=== PATIENT | male | born 1980 | race Caucasian/White ===

== ENCOUNTER 2020-09-13 17:20 | Inpatient (IN) | payer MEDICARE ==
[2020-09-13] MEDS: D5 1/4 NS 1,000 ML IV SCH (18:00)
[2020-09-13] MEDS ORDERED: Bisacodyl 10 MG SUPP PR PRN (18:36)
[2020-09-13] MEDS ORDERED: Acetaminophen 650 MG Suppository PR PRN (18:36)
[2020-09-13] MEDS ORDERED: Mag-Al Plus 1200 MG/1200 MG/120 MG/30 ML UDCUP PO PRN (18:36)
[2020-09-13] MEDS ORDERED: HumaLOG 300 UNITS/3 ML VIAL SC PRN ×2 (18:38→20:15)
[2020-09-13] MEDS ORDERED: Dextrose 50% Abboject 50 ML SYRINGE IVP PRN (20:15)
[2020-09-13] MEDS ORDERED: Dextrose 5% in Water 1,000 ML IV PRN (20:15)
[2020-09-13] MEDS ORDERED: Milk Of Magnesia 30 ML UDCUP PO PRN (20:16)
[2020-09-13] MEDS ORDERED: Ondansetron PF 4 MG/2 ML Vial IVP PRN (20:17)
[2020-09-13] MEDS ORDERED: Promethazine HCl 25 MG/ML VIAL IM PRN (20:17)
[2020-09-13] MEDS: Nystatin Powder 15 GM BOT TOP SCH (21:56)
[2020-09-13] MEDS: Budesonide 0.5 MG/2 ML NEB NEB SCH (21:57)
[2020-09-14 00:39] LABS: Bilirubin Small (Negative); Blood, Urine Trace (Negative); Clarity Clear (Clear); Glucose, Urine (Dipstick) Negative (Negative); Ketone, Urine Negative (Negative); Leukocyte Large (Negative); Nitrite Negative (Negative); Protein, Urine (Dipstick) 30 mg/dL (Neg-Trace); Specific Gravity, Urine 1.015 (1.005-1.030)
[2020-09-14 00:55] LABS: RBC/HPF 0-3 HPF (0-3)
[2020-09-14 00:56] LABS: Bacteria/HPF None Seen HPF (None Seen); Squamous Epithelial None Seen HPF (0-3); WBC/HPF Greater Than 50 HPF (0-3); Yeast-Budding 3+ HPF (None Seen); Yeast-Hyphae 1+ HPF (None Seen)
[2020-09-14 05:49] LABS: #Basophils 0.1 thou/uL (0.0-0.2); #Lymphocytes 0.7 thou/uL (1.20-3.40); #Monocytes 0.4 thou/uL (0.11-0.59); #Neutrophils 2.9 thou/uL (1.40-6.50); %Basophils 1.3 % (0.0-1.0); %Eosinophils 0.2 % (0.0-10.0); %Lymphocytes 17.3 % (21.0-51.0); %Monocytes 10.4 % (0.0-10.0); %Neutrophils 70.8 % (42.0-75.0); Hemoglobin 9.1 g/dL (14.0-18.0); Mean Corpuscular HGB CONC 31.8 g/dL (32.0-36.0); Mean Corpuscular Hemoglobin 30.7 pg (27.0-31.0); Mean Corpuscular Volume 96.6 fL (78.0-98.0); Platelet Count 81 thou/uL (130-400); RBC Distribution Width 17.1 % (11.5-14.5); Red Blood Cell (RBC) Count 2.95 mill/uL (4.70-6.10); White Blood Cell (WBC) Count 4.1 thou/uL (4.8-10.8)
[2020-09-14 06:01] LABS: ALT (SGPT) 21 U/L (8-55); AST (SGOT) 40 U/L (5-34); Albumin 2.2 g/dL (3.5-5.0); Alkaline Phosphatase 193 U/L (40-110); Anion Gap 12 mmol/L (10-20); BUN (Urea Nitrogen) 10 mg/dL (8.9-20.6); Bilirubin, Total 1.2 mg/dL (0.2-1.2); Calc. Creatinine Clearance 260 mL/min (70-130); Calcium 7.8 mg/dL (7.8-10.44); Carbon Dioxide 32 mmol/L (22-29); Chloride 94 mmol/L (98-107); Globulin 2.5 g/dL (2.4-3.5); Glucose 81 mg/dL (70-105); Potassium 3.8 mmol/L (3.5-5.1); Protein, Total 4.7 g/dL (6.0-8.3); Sodium 134 mmol/L (136-145)
[2020-09-14] MEDS: Spironolactone 100 MG TAB PO SCH (08:59)
[2020-09-14] MEDS: Saccharomyces boulardii 250 MG CAP PO SCH (08:59)
[2020-09-14] MEDS: Folic Acid 1 MG TAB PO SCH (08:59)
[2020-09-14] MEDS: Furosemide 40 MG TAB PO SCH (08:59)
[2020-09-14] MEDS: Nystatin Powder 15 GM BOT TOP SCH ×2 (09:00→21:38)
[2020-09-14] MEDS ORDERED: FLU VACC QS2020-21(6MOS UP)/PF 60 MCG/0.5 ML SYRINGE IM ONE (09:00)
[2020-09-14] MEDS: Budesonide 0.5 MG/2 ML NEB NEB SCH ×2 (09:00→21:38)
--- NOTE | 2020-09-14 11:37 | HP ---
CHIEF COMPLAINT: Recent admission to the hospital with sepsis, acute liver failure, likely due to alcoholic cirrhosis and significant deconditioning for therapy. BRIEF HISTORY: This is an unfortunate 39-year-old male, who was admitted to the hospital on August 20 with respiratory failure and syncope. He apparently had dark possible melenic stool at home and developed altered mental status. He was noted to have a systolic blood pressure in the 40s. He was intubated and with blood transfusion as well as FFP and antibiotic, his systolic blood pressure improved to the 90s. He was started on broad-spectrum antibiotics. He was on octreotide drip. Multiple specialists were consulted including Critical Care and Gastroenterology. The electrolytes were replaced. He was also seen by Dr. Johnson from Infectious Disease standpoint. Blood cultures grew gram-negative rods, which turned out to be E coli. He currently has been transitioned to oral Levaquin. He does state that this is resistant to oral Levaquin, so I am not sure why he is on the Levaquin. I do not have a discharge summary. He also underwent paracentesis and 4 L of clear straw-colored fluid were removed. This was done a few times. He slowly started to respond to the above measures. He was eventually intubated and he did have a PleurX catheter placed due to recurrent abdominal paracentesis. He was initially supposed to go on hospice, but family has decided to continue to pursue shelter since the patient is improving. There was some suspicion for left lower extremity DVT, but venous ultrasound was negative. The patient is currently resting in bed and alert and responsive. He denies any questions or concerns. He does complain of back pain, but he states that he does not need any pain medications. He is being assessed by therapy. PAST MEDICAL HISTORY: 1. Alcoholic cirrhosis with portal hypertension and ascites. 2. Ulcerative colitis. 3. Possible sepsis with E coli and sepsis probably spontaneous bacterial peritonitis. 4. Acute renal failure, which has resolved. 5. Acute respiratory failure, which has resolved. 6. Moderate protein calorie malnutrition. 7. Paroxysmal atrial fibrillation. 8. Iron deficiency anemia. PSYCHOSOCIAL HISTORY: Longstanding history of alcohol abuse. Denies any tobacco or recreational drug abuse. FAMILY HISTORY: Noncontributory to current admission. PAST SURGICAL HISTORY: Nothing significant other than the recent procedures during his last hospitalization. REVIEW OF SYSTEMS: CARDIOVASCULAR: Denies any chest pain, shortness of breath, palpitations, PND, orthopnea, or pedal edema. RESPIRATORY: Denies any chronic cough, expectoration, or pleuritic-type chest pain. GASTROINTESTINAL: Anorexia, but he is trying to eat better. Denies any vomiting, hematemesis, melena, or hematochezia recently. GENITOURINARY: Denies any frequency, urgency, dysuria, or hematuria. CENTRAL NERVOUS SYSTEM: Generalized weakness and muscle wasting noted. EXTREMITIES: Does complain of occasional joint pains. SKIN: Denies any rash. ENT: Denies any difficulty with vision, hearing, or swallowing. MEDICATIONS: He has been transferred here on the following medications; 1. Tylenol 650 q.6 p.r.n. 2. Dulcolax 10 mg p.r. daily. 3. Pulmicort solution 0.5 mg b.i.d. 4. IV fluids. 5. D5 quarter normal saline at 50 mL. 6. Folic acid 1 mg daily. 7. Lasix 40 mg daily. 8. Levaquin 500 mg daily. 9. I am really not sure why he is on milk of magnesia 30 mL q.8 p.r.n. 10. Nadolol 40 mg daily. 11. Protonix 40 mg b.i.d. 12. Sertraline 50 mg daily. 13. Aldactone 100 mg daily. PHYSICAL EXAMINATION: GENERAL: Pleasant 39-year-old male, resting comfortably in bed, and denies any concerns. He is alert, awake, and responsive. VITAL SIGNS: He is afebrile. Heart rate 69, respirations 18, oxygen saturation 94% on room air, blood pressure 102/72. HEENT: Normocephalic and atraumatic. Pupils equally reactive to light and accommodation. No JVD, thyromegaly, cervical myopathy, or throat exudates. No carotid bruits. CARDIOVASCULAR: S1 and S2 plus. Rate and rhythm regular. RESPIRATORY: Normal vesicular breath sounds with occasional rhonchi. ABDOMEN: Soft, minimal, distention, nontender. Bowel sounds heard in all quadrants. EXTREMITIES: Without cyanosis or clubbing. Trace edema. Snell catheter in place. CENTRAL NERVOUS SYSTEM: Awake and responsive. Cranial nerves 2 through 12 intact. Generalized weakness. Muscle atrophy is noted. LABORATORY VALUES: Show a white count of 4.1, hemoglobin and hematocrit are 9.1 and 28.6. Sodium 134, potassium 3.8, BUN and creatinine are 10 and 0.56. AST is 40, ALT 21. Ammonia level is 30. Albumin is 2.2. Urinalysis shows greater than 50 wbc's with 3+ yeast, but long-standing indwelling Snell and no clinical signs of infection. IMPRESSION: 1. Alcoholic chronic cirrhosis with ascites and portal hypertension. 2. Possible variceal/GI bleed, which has resolved. 3. Resolved acute renal failure. 4. Resolved acute hypoxemic respiratory failure. 5. Significant deconditioning with moderate protein calorie malnutrition. 6. Anemia, likely due to chronic disease. 7. Paroxysmal atrial fibrillation. 8. Hyponatremia. PLAN: 1. Continue current medications. 2. Nutritional support with high-protein low-sodium diet. 3. Continue IV fluids to prevent hypoglycemia. We will monitor him closely and then discontinue it in 24 hours. 4. Not sure why he is on Levaquin. We will try to review old records. I have not found any information yet. We may discontinue it. 5. DVT prophylaxis with PlexiPulses. 6. Decubitus precautions. 7. Stress ulcer prophylaxis. 8. PT/OT eval and treat. 9. Encourage p.o. intake. 10. Routine laboratory values. 11. Dr. Steven on-call this weekend. 12. No family at bedside. 13. Discussed with the patient in detail. All questions answered. Job ID: [id number]
[2020-09-14] MEDS ORDERED: Nadolol 40 MG TAB PO SCH (13:00)
[2020-09-15] MEDS: D5 1/4 NS 1,000 ML IV SCH ×2 (08:26→15:37)
[2020-09-15] MEDS: Folic Acid 1 MG TAB PO SCH (08:28)
[2020-09-15] MEDS: Furosemide 40 MG TAB PO SCH (08:29)
[2020-09-15] MEDS: Saccharomyces boulardii 250 MG CAP PO SCH (08:31)
[2020-09-15] MEDS: Nystatin Powder 15 GM BOT TOP SCH ×2 (08:31→21:43)
[2020-09-15] MEDS: Budesonide 0.5 MG/2 ML NEB NEB SCH ×2 (08:32→21:35)
[2020-09-15] MEDS: Spironolactone 100 MG TAB PO SCH (15:00)
[2020-09-15] MEDS: Nadolol 40 MG TAB PO SCH (15:36)
--- NOTE | 2020-09-15 20:03 | PRG ---
DATE OF SERVICE: Patient of Dr. Dominguez Álvarez. SUBJECTIVE: Patient is an unfortunate 39-year-old male, with a history of severe alcoholic cirrhosis, portal hypertension, and ascites, who has had a recent episode of sepsis secondary to Escherichia coli as well as an episode of GI bleeding from ulcerative colitis. Has become severely weakened and debilitated. He has required intubation and respiratory support, but has improved with slow diuresis of his ascites and has been admitted to inpatient to [facility] for therapy. He is still not eating very well, is very weak. He has required paracentesis through a PleurX on admission, but at this time he is comfortable with no tenderness of his abdomen. No shortness of breath. OBJECTIVE: VITAL SIGNS: Show his blood pressure is 101/67, temperature is 98, pulse 64, respirations 18, and O2 sats 94% on room air. LUNGS: Clear. CARDIAC EXAMINATION: Shows regular rhythm. ABDOMEN: Soft, nontender with palpable fluid wave. There is no peripheral edema. ASSESSMENT: 1. Cirrhosis with ascites, stable, status post recent paracentesis. 2. History of ulcerative colitis, recent gastrointestinal bleed with no recurrence. 3. Severe deconditioning with inability to maintain ADLs. Awaiting PT, OT. 4. Acute renal failure, resolved. 5. Acute respiratory failure, resolved. 6. Severe protein-calorie malnutrition. PLAN: 1. Continue PT, OT. 2. Continue to stress increased protein intake. 3. Continue gentle diuresis with spironolactone. 4. Continue 50 mL an hour D5 quarter to prevent hypoglycemia. 5. Continue Corgard for portal hypertension. Only hold if blood pressure is less than 110. Job ID: [id number]
[2020-09-16] MEDS: D5 1/4 NS 1,000 ML IV SCH ×2 (03:27→23:41)
[2020-09-16 05:27] LABS: #Basophils 0.1 thou/uL (0.0-0.2); #Lymphocytes 0.7 thou/uL (1.20-3.40); #Monocytes 0.5 thou/uL (0.11-0.59); %Basophils 1.5 % (0.0-1.0); %Eosinophils 0.2 % (0.0-10.0); %Lymphocytes 17.1 % (21.0-51.0); %Monocytes 12.5 % (0.0-10.0); %Neutrophils 68.6 % (42.0-75.0); Hemoglobin 9.1 g/dL (14.0-18.0); Mean Corpuscular HGB CONC 32.5 g/dL (32.0-36.0); Mean Corpuscular Hemoglobin 30.8 pg (27.0-31.0); Mean Corpuscular Volume 94.8 fL (78.0-98.0); Mean Platelet Volume 11.4 fL (7.4-10.4); Platelet Count 95 thou/uL (130-400); RBC Distribution Width 16.8 % (11.5-14.5); Red Blood Cell (RBC) Count 2.95 mill/uL (4.70-6.10); White Blood Cell (WBC) Count 4.3 thou/uL (4.8-10.8)
[2020-09-16 05:35] LABS: Anion Gap 11 mmol/L (10-20); BUN (Urea Nitrogen) 8 mg/dL (8.9-20.6); Calc. Creatinine Clearance 255 mL/min (70-130); Calcium 7.3 mg/dL (7.8-10.44); Carbon Dioxide 31 mmol/L (22-29); Chloride 96 mmol/L (98-107); Glucose 83 mg/dL (70-105); Potassium 3.5 mmol/L (3.5-5.1); Sodium 134 mmol/L (136-145)
[2020-09-16] MEDS: Furosemide 40 MG TAB PO SCH (07:23)
[2020-09-16] MEDS: Budesonide 0.5 MG/2 ML NEB NEB SCH ×2 (08:11→21:26)
[2020-09-16] MEDS: Nystatin Powder 15 GM BOT TOP SCH ×2 (08:11→21:26)
[2020-09-16] MEDS: Saccharomyces boulardii 250 MG CAP PO SCH (08:12)
[2020-09-16] MEDS: Spironolactone 100 MG TAB PO SCH (08:12)
[2020-09-16] MEDS: Nadolol 40 MG TAB PO SCH (08:12)
[2020-09-16] MEDS: Folic Acid 1 MG TAB PO SCH (08:14)
--- NOTE | 2020-09-16 19:59 | PRG ---
DATE OF SERVICE: 09/16/[address] Dominguez Álvarez. SUBJECTIVE: The patient lying in the bed, watching TV. No complaints. He does state, however, that he feels full and he is not able to eat much. He did have slight blood on his bowel movement today, but no melena. OBJECTIVE: VITAL SIGNS: Shows his temperature is 98.1, respirations 18, O2 sats 96% on room air, blood pressure is 116/66. LUNGS: Clear. CARDIAC EXAMINATION: Shows regular rhythm. ABDOMEN: Distended and nontender, but shows ballotable fluid wave. SKIN/EXTREMITIES: Show trace edema. LABORATORY DATA: Shows a white count of 4300, hematocrit 27, hemoglobin 9.1, platelet count 95,000. Sodium is 134, potassium 3.5, chloride 96, bicarb 31, BUN 8, creatinine 0.57. ASSESSMENT: 1. End-stage cirrhosis with ascites, stable, but with possibly increasing ascites and we will probably do paracentesis tomorrow. 2. History of ulcerative colitis with stable hemoglobin, but with recent staining with blood on stool. 3. Severe deconditioning, inability to maintain ADLs, ready to start PT/OT tomorrow. 4. Acute renal failure, resolved. 5. Acute respiratory failure, resolved. 6. Severe protein calorie malnutrition, not improving as patient not eating. PLAN: 1. Continue PT/OT. 2. Measure abdominal girth at umbilicus daily. 3. Probable repeat paracentesis tomorrow. 4. Continue D5 quarter to prevent hypoglycemia. 5. Continue gentle diuresis with spironolactone. 6. Dr. Moore back [facility]. Job ID: [id number]
[2020-09-17] MEDS: Budesonide 0.5 MG/2 ML NEB NEB SCH ×2 (08:28→21:12)
[2020-09-17] MEDS: Nystatin Powder 15 GM BOT TOP SCH ×2 (08:29→21:13)
[2020-09-17] MEDS: Fluconazole 100 MG TAB PO SCH (08:29)
[2020-09-17] MEDS: Furosemide 40 MG TAB PO SCH (08:29)
[2020-09-17] MEDS: Saccharomyces boulardii 250 MG CAP PO SCH (08:29)
[2020-09-17] MEDS: Nadolol 40 MG TAB PO SCH (08:29)
[2020-09-17] MEDS: Folic Acid 1 MG TAB PO SCH (08:30)
[2020-09-17] MEDS: Spironolactone 100 MG TAB PO SCH (08:30)
--- NOTE | 2020-09-17 13:44 | PRG ---
DATE OF SERVICE: 09/17/2020 SUBJECTIVE: Mr. Pickering is resting in bed. He apparently is hardly eating any food. He still request to be on D5 quarter-normal saline to maintain his blood sugars, reinforced the importance of p.o. intake, so that he has the strength to participate with therapy and get stronger. I also spoke with his mom and explained to her about the same situation. She is going to try to encourage him as well. His abdomen is soft and the patient is not complaining of any distention, pressure, or shortness of breath. OBJECTIVE: VITAL SIGNS: He is afebrile. Heart rate 66, respirations 18, oxygen saturation 92% on room air, blood pressure 99/71. CARDIOVASCULAR: S1 and S2 plus. RESPIRATORY: Normal vesicular breath sounds. ABDOMEN: Soft. Free fluid present. Bowel sounds heard in all quadrants. No palpable mass. EXTREMITIES: Without cyanosis or clubbing. Muscle wasting is noted. CENTRAL NERVOUS SYSTEM: Generalized weakness. IMPRESSION: 1. Alcoholic cirrhosis with portal hypertension and ascites. 2. Csedhqtw-vw-nwhask protein calorie malnutrition. 3. Resolved acute renal failure. 4. Ulcerative colitis. 5. Anemia, iron deficiency, likely due to acute on chronic blood loss. 6. Significant deconditioning. 7. Poor p.o. intake. PLAN: 1. Continue current medications. 2. 3-day calorie count and Dietary consult. 3. At least, encourage the patient to drink 3 of the Ensures a day. 4. Continue IV fluids. 5. Monitor abdominal girth. 6. Paracentesis p.r.n. 7. Routine laboratory values. 8. Snell catheter care. 9. Poor long-term prognosis. 10. Discussed with mom in detail. All questions answered. Job ID: [id number]
[2020-09-17] MEDS: D5 1/4 NS 1,000 ML IV SCH (17:35)
[2020-09-18] MEDS: Furosemide 40 MG TAB PO SCH (08:14)
[2020-09-18] MEDS: Folic Acid 1 MG TAB PO SCH (08:15)
[2020-09-18] MEDS: Saccharomyces boulardii 250 MG CAP PO SCH (08:15)
[2020-09-18] MEDS: Budesonide 0.5 MG/2 ML NEB NEB SCH ×2 (08:15→20:44)
[2020-09-18] MEDS: Fluconazole 100 MG TAB PO SCH (08:15)
[2020-09-18] MEDS: Spironolactone 100 MG TAB PO SCH (08:15)
[2020-09-18] MEDS: Nadolol 40 MG TAB PO SCH (08:15)
[2020-09-18] MEDS: Nystatin Powder 15 GM BOT TOP SCH ×2 (08:51→20:44)
[2020-09-18] MEDS: D5 1/4 NS 1,000 ML IV SCH (13:09)
--- NOTE | 2020-09-18 13:50 | PRG ---
DATE OF SERVICE: 09/18/2020 SUBJECTIVE: Mr. Pickering is doing the same. He apparently ate a couple of bites of his food. His mom is in the room. I advised him that he really needs to eat better for him to improve. I asked him to drink at least one Ensure a day to start with, but he needs to get to at least 3 a day. Mom is aware that if he is not eating and he is not participating with therapy, then he does not qualify to stay here and he may have to consider palliative care. OBJECTIVE: VITAL SIGNS: He is afebrile. Heart rate 65, respirations 18, oxygen saturation 95% on room air, blood pressure 114/75. CARDIOVASCULAR: S1 and S2 plus. RESPIRATORY: Normal vesicular breath sounds. ABDOMEN: Soft, distended, . Free fluid is present. Bowel sounds heard in all quadrants. Nontender. EXTREMITIES: Without cyanosis or clubbing. CENTRAL NERVOUS SYSTEM: Generalized weakness. IMPRESSION: 1. Hyponatremia. 2. Alcoholic cirrhosis with portal hypertension and ascites. 3. Anemia due to blood loss. 4. Ulcerative colitis. 5. Nykdztul-qz-veivtz protein calorie malnutrition. 6. Significant deconditioning. PLAN: 1. Continue current medications. 2. Nutritional support. 3. Await 3-day calorie count. 4. Ensure t.i.d. 5. DVT prophylaxis with PlexiPulses. 6. Decubitus precaution. 7. Stress ulcer prophylaxis. 8. Therapy. 9. Continue IV fluids for now. 10. Poor prognosis if he does not start to eat well. Discussed with the patient and mom. All questions answered. Job ID: [id number]
[2020-09-19] MEDS: Furosemide 40 MG TAB PO SCH (07:28)
[2020-09-19] MEDS: Budesonide 0.5 MG/2 ML NEB NEB SCH ×2 (08:26→20:32)
[2020-09-19] MEDS: Spironolactone 100 MG TAB PO SCH (08:27)
[2020-09-19] MEDS: Nadolol 40 MG TAB PO SCH (08:27)
[2020-09-19] MEDS: Fluconazole 100 MG TAB PO SCH (08:28)
[2020-09-19] MEDS: Folic Acid 1 MG TAB PO SCH (08:28)
[2020-09-19] MEDS: Saccharomyces boulardii 250 MG CAP PO SCH (08:28)
[2020-09-19] MEDS: Nystatin Powder 15 GM BOT TOP SCH ×2 (08:29→20:32)
--- NOTE | 2020-09-19 12:57 | PRG ---
DATE OF SERVICE: 09/19/2020 SUBJECTIVE: Mr. Pickering is up in bed. He just finished his lunch. He apparently ate couple of bites. He is trying to drink an Ensure. Still has a two person assist. He apparently needed knee-high ANTONIO hose for orthostasis. No family at bedside. OBJECTIVE: VITAL SIGNS: He is afebrile, heart rate 65, respirations 16, oxygen saturation 96% on room air, and blood pressure 112/73. CARDIOVASCULAR SYSTEM: S1 and S2 plus. RESPIRATORY SYSTEM: Normal vesicular breath sounds. ABDOMEN: Soft, nontender. Bowel sounds heard in all quadrants. Free fluid present. EXTREMITIES: Without cyanosis or clubbing. Significant muscle atrophy. CENTRAL NERVOUS SYSTEM: Generalized weakness. IMPRESSION: 1. Alcoholic cirrhosis with portal hypertension and ascites. 2. Ulcerative colitis. 3. Significant deconditioning. 4. Kjnsuyre-tr-mfwufw protein-calorie malnutrition. 5. Depression. PLAN: 1. Continue nutritional support. 2. Physical therapy. 3. Monitor ascites. 4. Drain if needed. 5. Encourage p.o. intake. 6. Physical therapy. 7. Okay to use knee-high ANTONIO hose for orthostasis. 8. Continue IV fluids until p.o. intake increases. 9. Recheck CBC, CMP tomorrow. 10. Discussed with the patient in detail. All questions answered. He is on fluconazole for fungus in his urine, but I really think it is more colonization. We will finish off the duration of course. Job ID: [id number]
[2020-09-19] MEDS: D5 1/4 NS 1,000 ML IV SCH (20:32)
[2020-09-19] MEDS: Mirtazapine 15 MG TAB PO SCH (20:32)
[2020-09-20 05:31] LABS: #Basophils 0.1 thou/uL (0.0-0.2); #Monocytes 0.6 thou/uL (0.11-0.59); #Neutrophils 2.9 thou/uL (1.40-6.50); %Basophils 1.3 % (0.0-1.0); %Lymphocytes 21.3 % (21.0-51.0); %Monocytes 13.5 % (0.0-10.0); %Neutrophils 63.9 % (42.0-75.0); Hemoglobin 10.8 g/dL (14.0-18.0); Mean Corpuscular Hemoglobin 30.4 pg (27.0-31.0); Mean Corpuscular Volume 94.9 fL (78.0-98.0); Mean Platelet Volume 9.7 fL (7.4-10.4); Platelet Count 167 thou/uL (130-400); RBC Distribution Width 16.2 % (11.5-14.5); Red Blood Cell (RBC) Count 3.54 mill/uL (4.70-6.10); White Blood Cell (WBC) Count 4.5 thou/uL (4.8-10.8)
[2020-09-20 05:32] LABS: INR-International Normal Ratio 1.7; Prothrombin Time 20.3 sec (12.0-14.7)
[2020-09-20 05:41] LABS: ALT (SGPT) 17 U/L (8-55); AST (SGOT) 37 U/L (5-34); Alkaline Phosphatase 165 U/L (40-110); Anion Gap 13 mmol/L (10-20); BUN (Urea Nitrogen) 8 mg/dL (8.9-20.6); Bilirubin, Total 1.3 mg/dL (0.2-1.2); Calc. Creatinine Clearance 220 mL/min (70-130); Calcium 7.3 mg/dL (7.8-10.44); Carbon Dioxide 27 mmol/L (22-29); Chloride 99 mmol/L (98-107); Globulin 3.1 g/dL (2.4-3.5); Glucose 82 mg/dL (70-105); Potassium 3.9 mmol/L (3.5-5.1); Protein, Total 5.1 g/dL (6.0-8.3); Sodium 135 mmol/L (136-145)
[2020-09-20] MEDS: Spironolactone 100 MG TAB PO SCH (09:06)
[2020-09-20] MEDS: Furosemide 40 MG TAB PO SCH (09:06)
[2020-09-20] MEDS: Fluconazole 100 MG TAB PO SCH (09:06)
[2020-09-20] MEDS: Nadolol 40 MG TAB PO SCH (09:06)
[2020-09-20] MEDS: Saccharomyces boulardii 250 MG CAP PO SCH (09:06)
[2020-09-20] MEDS: Budesonide 0.5 MG/2 ML NEB NEB SCH ×2 (09:06→20:45)
[2020-09-20] MEDS: Folic Acid 1 MG TAB PO SCH (09:06)
[2020-09-20] MEDS: Nystatin Powder 15 GM BOT TOP SCH ×2 (09:07→20:46)
--- NOTE | 2020-09-20 13:04 | PRG ---
DATE OF SERVICE: 09/20/2020 SUBJECTIVE: Mr. Pickering is resting in bed. He is not eating well. I advised him that we will try draining his ascitic fluid and see if that helps any as he states that he still feels full. He was switched from Zoloft to Remeron yesterday to try and increase his appetite, 3-day calorie count is pending. OBJECTIVE: VITAL SIGNS: He is afebrile, heart rate , respirations 16, oxygen saturation 93% on room air, blood pressure 110/73. CARDIOVASCULAR: S1 and S2 plus. RESPIRATORY: Normal vesicular breath sounds. ABDOMEN: Soft, distended. Free fluid present, not tense. Bowel sounds heard in all quadrants. Nontender. EXTREMITIES: Without cyanosis or clubbing. CENTRAL NERVOUS SYSTEM: Generalized weakness. LABORATORY VALUES: Show a white count of 4.5, H and H are 10.8 and 33.6. Sodium 135, potassium 3.9, BUN and creatinine are 8 and 0.66. IMPRESSION: 1. Alcoholic cirrhosis with ascites and portal hypertension. 2. Severe protein calorie malnutrition. 3. Ulcerative colitis, stable. 4. Very poor p.o. intake. 5. Hyponatremia, persistent. 6. Anemia of chronic disease, stable to slightly improving. 7. Significant deconditioning. PLAN: 1. Trial of removing 2 L through his PleurX catheter and see if it helps to improve his appetite. 2. Encourage p.o. intake. 3. Await calorie count. 4. Monitor progress with therapy. 5. His prognosis is poor. 6. Monitor response to Remeron. 7. His INR is 1.7, so he is auto-anticoagulated. 8. Routine laboratory values. 9. Decubitus precautions. 10. Stress ulcer prophylaxis. 11. Monitor cognition and for any evidence for decompensation of his liver failure. Job ID: [id number]
[2020-09-20] MEDS: D5 1/4 NS 1,000 ML IV SCH (15:10)
[2020-09-20] MEDS: Mirtazapine 15 MG TAB PO SCH (20:44)
[2020-09-21] MEDS: Furosemide 40 MG TAB PO SCH (07:42)
[2020-09-21] MEDS: Budesonide 0.5 MG/2 ML NEB NEB SCH ×2 (08:46→21:13)
[2020-09-21] MEDS: Fluconazole 100 MG TAB PO SCH (08:46)
[2020-09-21] MEDS: Folic Acid 1 MG TAB PO SCH (08:46)
[2020-09-21] MEDS: Spironolactone 100 MG TAB PO SCH (08:47)
[2020-09-21] MEDS: Saccharomyces boulardii 250 MG CAP PO SCH (08:47)
[2020-09-21] MEDS: Nadolol 40 MG TAB PO SCH (08:47)
--- NOTE | 2020-09-21 10:46 | PRG ---
DATE OF SERVICE: 09/21/2020 SUBJECTIVE: Mr. Pickering is resting in bed. He is getting ready to work with therapy. He states that the paracenteses of 2 L made him feel better. He is not having any episodes of confusion or any symptoms suggestive of decompensation of liver failure. Plan is to remove another 2 L today and then we will place an order to remove a maximum of 2 L Thursday, Thursday, and Thursday. OBJECTIVE: VITAL SIGNS: He is afebrile, heart rate 71, respirations 20, oxygen saturation 93% on room air, blood pressure 116/80. CARDIOVASCULAR SYSTEM: S1, S2 present. RESPIRATORY SYSTEM: Normal vesicular breath sounds. ABDOMEN: Soft. Free fluid present. Bowel sounds heard in all quadrants. EXTREMITIES: Without cyanosis or clubbing. LABORATORY DATA: Blood sugars are 85, 90, 76, and 85. He is still on the D5. IMPRESSION: 1. Alcoholic cirrhosis with portal hypertension, ascites. 2. Hypoglycemia, requiring D5. 3. Ulcerative colitis. 4. Severe protein calorie malnutrition. 5. Significant deconditioning. 6. Anemia of chronic disease. 7. Hyponatremia, stable. PLAN: 1. Continue current medications. 2. Nutritional support. Again, encourage the patient to eat well. 3. Drainage of ascitic fluid, maximum of 2 L on Mondays, Wednesdays, and Fridays. 4. Continue therapy. 5. DVT prophylaxis - the patient is already auto-anticoagulated from his liver disease. 6. Decubitus precautions. 7. Stress ulcer prophylaxis. 8. Await calorie count. 9. Poor long-term prognosis. 10. No family at bedside. Job ID: [id number]
[2020-09-21] MEDS: AA 4.25 %/CALCIUM/LYTES/D5W 2,000 ML IV SCH (12:11)
[2020-09-21] MEDS: Nystatin Powder 15 GM BOT TOP SCH ×2 (12:12→21:14)
[2020-09-21] MEDS: Mirtazapine 15 MG TAB PO SCH (21:13)
[2020-09-22] MEDS: Furosemide 40 MG TAB PO SCH (07:25)
[2020-09-22] MEDS: AA 4.25 %/CALCIUM/LYTES/D5W 2,000 ML IV SCH (07:26)
[2020-09-22] MEDS: Budesonide 0.5 MG/2 ML NEB NEB SCH ×2 (08:46→21:22)
[2020-09-22] MEDS: Fluconazole 100 MG TAB PO SCH (08:47)
[2020-09-22] MEDS: Folic Acid 1 MG TAB PO SCH (08:47)
[2020-09-22] MEDS: Nystatin Powder 15 GM BOT TOP SCH ×2 (08:48→21:24)
[2020-09-22] MEDS: Saccharomyces boulardii 250 MG CAP PO SCH (08:53)
[2020-09-22] MEDS: Spironolactone 100 MG TAB PO SCH (11:02)
[2020-09-22] MEDS: Nadolol 40 MG TAB PO SCH (11:02)
[2020-09-22] MEDS: Mirtazapine 15 MG TAB PO SCH (21:22)
[2020-09-23] MEDS: AA 4.25 %/CALCIUM/LYTES/D5W 2,000 ML IV SCH ×2 (03:38→23:57)
[2020-09-23] MEDS: Furosemide 40 MG TAB PO SCH (08:09)
[2020-09-23] MEDS: Nadolol 40 MG TAB PO SCH ×2 (09:07→09:56)
[2020-09-23] MEDS: Saccharomyces boulardii 250 MG CAP PO SCH (09:07)
[2020-09-23] MEDS: Folic Acid 1 MG TAB PO SCH (09:07)
[2020-09-23] MEDS: Spironolactone 100 MG TAB PO SCH (09:08)
[2020-09-23] MEDS: Budesonide 0.5 MG/2 ML NEB NEB SCH ×2 (09:08→20:46)
[2020-09-23] MEDS: Fluconazole 100 MG TAB PO SCH (09:08)
[2020-09-23] MEDS: Nystatin Powder 15 GM BOT TOP SCH ×2 (09:10→20:46)
--- NOTE | 2020-09-23 18:15 | PRG ---
DATE OF SERVICE: 09/22/2020 SUBJECTIVE: The patient lying in bed, resting well with no dyspnea, shortness of breath or confusion. He has been having routine paracentesis and appears to be tolerating well. He is still not ambulating very well and still very weak. He is eating fairly well but still states he does not have a good appetite. OBJECTIVE: VITAL SIGNS: Shows blood pressure is 114/77, temperature 97, pulse 73, respirations 21, O2 sats 98% on room air. LUNGS: Clear with decreased breath sounds at bases. CARDIAC: Displays regular rhythm. No gallops or murmurs. ABDOMEN: Soft and nontender with no masses, organomegaly, but there is palpable ascites. SKIN/EXTREMITIES: Show no edema, clubbing, or cyanosis. ASSESSMENT: 1. Alcoholic cirrhosis with portal hypertension, recurrent ascites, being removed 3 times weekly and tolerating well. 2. Ulcerative colitis, stable. 3. Malnutrition, improving slowly with still persistent anorexia. 4. Deconditioning, still very weak, but willing for therapy next week. PLAN: 1. Continue PT, OT. 2. Review labs and therapy notes. 3. Continue D5 because of persistent hypoglycemia. 4. Continue paracentesis on Thursday, Thursday, and Thursday. Job ID: [id number]
--- NOTE | 2020-09-23 18:45 | PRG ---
DATE OF SERVICE: 09/23/2020 SUBJECTIVE: The patient is feeling well, having some purulent discharge from his penis. OBJECTIVE: VITAL SIGNS: Show temperature 96.7, pulse 68, respirations 18, O2 sats 96% on room air, blood pressure 115/78. LUNGS: Clear. CARDIAC EXAMINATION: Shows regular rhythm. ABDOMEN: Shows increased ascites. EXTREMITIES: No edema, clubbing, or cyanosis. Current bladder scan showed the patient is emptying his bladder, being monitored with no further drainage from around the penis. ASSESSMENT: 1. Alcoholic cirrhosis with ascites and portal hypertension, being drained 3 times a week. 2. Protein malnutrition, slowly improving. 3. Urethral discharge. Snell catheter removed and no further drainage and adequate emptying on ultrasound. 4. Ulcerative colitis, stable. 5. Hyponatremia with labs in the a.m. PLAN: 1. Continue PT/OT tomorrow. 2. Continue paracentesis Thursday, Thursday, and Thursday. 3. Continue DVT prophylaxis not required as patient is auto-anticoagulated. 4. Continue stress ulcer prophylaxis. Job ID: [id number]
[2020-09-23] MEDS: Mirtazapine 15 MG TAB PO SCH (20:46)
[2020-09-24] MEDS: Furosemide 40 MG TAB PO SCH (07:26)
[2020-09-24] MEDS: Nadolol 40 MG TAB PO SCH (08:28)
[2020-09-24] MEDS: Spironolactone 100 MG TAB PO SCH (08:29)
[2020-09-24] MEDS: Fluconazole 100 MG TAB PO SCH (08:29)
[2020-09-24] MEDS: Folic Acid 1 MG TAB PO SCH (08:29)
[2020-09-24] MEDS: Saccharomyces boulardii 250 MG CAP PO SCH (08:29)
[2020-09-24] MEDS: Budesonide 0.5 MG/2 ML NEB NEB SCH ×2 (08:30→21:08)
[2020-09-24] MEDS: Nystatin Powder 15 GM BOT TOP SCH ×2 (08:31→21:07)
--- NOTE | 2020-09-24 13:24 | PRG ---
DATE OF SERVICE: 09/24/2020 SUBJECTIVE: Mr. Pickering is doing well. He is tolerating his Clinimix. He apparently is also trying to eat better. He does have a superficial wound in his right precordium, where he had possible IV access placed. Wound care is managing it. He is getting his PleurX catheter. Paracentesis is done every 2 days and it seems to be helping. No family at bedside. OBJECTIVE: VITAL SIGNS: He is afebrile. Heart rate 61, respirations 16, oxygen saturation 97% on room air, blood pressure 119/59. CARDIOVASCULAR: S1, S2 plus. RESPIRATORY: Normal vesicular breath sounds. ABDOMEN: Soft. Free fluid present. No guarding, rebound, or rigidity. Bowel sounds heard in all quadrants. EXTREMITIES: Without cyanosis or clubbing. Significant muscle atrophy. IMPRESSION: 1. Alcoholic cirrhosis with portal hypertension and ascites. 2. Ulcerative colitis. 3. Severe protein-calorie malnutrition. 4. Significant deconditioning. 5. Anemia of chronic disease. 6. Depression. PLAN: 1. Continue current medications including Clinimix. 2. Encourage p.o. intake. 3. Physical therapy. 4. PleurX catheter care and drainage . 5. Nutritional support. 6. Therapy. 7. Recheck CBC and BMP in the morning. 8. Poor long-term prognosis. 9. Discussed with the patient and nursing in detail. All questions answered are approved. Lidocaine topical prior to wound care to nursing. Job ID: [id number]
[2020-09-24] MEDS: AA 4.25 %/CALCIUM/LYTES/D5W 2,000 ML IV SCH (19:48)
[2020-09-24] MEDS: Mirtazapine 15 MG TAB PO SCH (21:07)
[2020-09-25 05:30] LABS: #Basophils 0.1 thou/uL (0.0-0.2); #Lymphocytes 0.8 thou/uL (1.20-3.40); #Monocytes 0.5 thou/uL (0.11-0.59); #Neutrophils 2.4 thou/uL (1.40-6.50); %Basophils 1.6 % (0.0-1.0); %Eosinophils 0.2 % (0.0-10.0); %Lymphocytes 21.6 % (21.0-51.0); %Monocytes 12.7 % (0.0-10.0); Hemoglobin 9.5 g/dL (14.0-18.0); Mean Corpuscular HGB CONC 33.1 g/dL (32.0-36.0); Mean Corpuscular Hemoglobin 30.9 pg (27.0-31.0); Mean Corpuscular Volume 93.5 fL (78.0-98.0); Mean Platelet Volume 9.3 fL (7.4-10.4); Platelet Count 141 thou/uL (130-400); RBC Distribution Width 15.1 % (11.5-14.5); Red Blood Cell (RBC) Count 3.07 mill/uL (4.70-6.10); White Blood Cell (WBC) Count 3.8 thou/uL (4.8-10.8)
[2020-09-25 05:45] LABS: Anion Gap 10 mmol/L (10-20); BUN (Urea Nitrogen) 14 mg/dL (8.9-20.6); Calc. Creatinine Clearance 217 mL/min (70-130); Carbon Dioxide 29 mmol/L (22-29); Chloride 101 mmol/L (98-107); Glucose 103 mg/dL (70-105); Potassium 4.4 mmol/L (3.5-5.1); Sodium 136 mmol/L (136-145)
[2020-09-25] MEDS: Furosemide 40 MG TAB PO SCH (07:33)
[2020-09-25] MEDS: Spironolactone 100 MG TAB PO SCH (09:07)
[2020-09-25] MEDS: Fluconazole 100 MG TAB PO SCH (09:07)
[2020-09-25] MEDS: Saccharomyces boulardii 250 MG CAP PO SCH (09:08)
[2020-09-25] MEDS: Budesonide 0.5 MG/2 ML NEB NEB SCH ×2 (09:08→21:11)
[2020-09-25] MEDS: Folic Acid 1 MG TAB PO SCH (09:08)
[2020-09-25] MEDS: Nystatin Powder 15 GM BOT TOP SCH ×2 (09:09→21:12)
[2020-09-25] MEDS: Nadolol 40 MG TAB PO SCH (09:10)
--- NOTE | 2020-09-25 13:55 | PRG ---
DATE OF SERVICE: 09/25/2020 SUBJECTIVE: Mr. Pickering is doing well. He wanted his diet to be advanced to regular consistency and Speech Therapy was okay with it and it has being done. His Snell catheter has been removed. He is doing well and seems like his mood is also improving. OBJECTIVE: VITAL SIGNS: He is afebrile. Heart rate is 86, respirations are 18, oxygen saturation 96% on room air, blood pressure 107/82. CARDIOVASCULAR: S1 and S2 plus. RESPIRATORY: Normal vesicular breath sounds. ABDOMEN: Soft, nontender. Distention much improved. EXTREMITIES: Without cyanosis or clubbing. CENTRAL NERVOUS SYSTEM: Persistent deconditioning. LABORATORY DATA: White count is 3.8, H and H are 9.5 and 28.7. Sodium 136, potassium 4.4, BUN and creatinine are 14 and 0.55. Blood sugars are improved at 94, 112, 98, and 112. IMPRESSION: 1. Alcoholic cirrhosis with portal hypertension and ascites. 2. Severe protein calorie malnutrition. 3. Ulcerative colitis. 4. Depression. 5. Significant deconditioning. 6. Anemia of chronic disease. PLAN: 1. Continue current medications. 2. Nutritional support. 3. Continue Clinimix. 4. Continue therapy. 5. PleurX drainage every other day. 6. DVT prophylaxis-the patient is auto anticoagulated. 7. Decubitus precautions. 8. Stress ulcer prophylaxis. 9. Continue therapy. 10. Discussed with the patient in detail. All questions answered. Job ID: [id number]
[2020-09-25] MEDS: AA 4.25 %/CALCIUM/LYTES/D5W 2,000 ML IV SCH (18:12)
[2020-09-25] MEDS: Mirtazapine 15 MG TAB PO SCH (21:10)
[2020-09-26] MEDS: Furosemide 40 MG TAB PO SCH (07:53)
[2020-09-26] MEDS: Fluconazole 100 MG TAB PO SCH (09:05)
[2020-09-26] MEDS: Saccharomyces boulardii 250 MG CAP PO SCH (09:05)
[2020-09-26] MEDS: Folic Acid 1 MG TAB PO SCH (09:05)
[2020-09-26] MEDS: Spironolactone 100 MG TAB PO SCH (09:05)
[2020-09-26] MEDS: Nystatin Powder 15 GM BOT TOP SCH ×2 (09:06→20:49)
[2020-09-26] MEDS: Budesonide 0.5 MG/2 ML NEB NEB SCH ×2 (10:20→20:49)
[2020-09-26] MEDS: Nadolol 40 MG TAB PO SCH (10:20)
--- NOTE | 2020-09-26 13:30 | PRG ---
DATE OF SERVICE: 09/26/2020 SUBJECTIVE: Mr. Pickering is up in bed. He is voiding without any issues. He states that he is eating better, but his intake is still poor. OBJECTIVE: VITAL SIGNS: He is afebrile. Heart rate 82, respirations 18, oxygen saturation 94% on room air, blood pressure 126/88. CARDIOVASCULAR SYSTEM: S1 and S2 plus. RESPIRATORY SYSTEM: Normal vesicular breath sounds. ABDOMEN: Soft, nontender. Bowel sounds heard in all quadrants. EXTREMITIES: Without cyanosis or clubbing. CENTRAL NERVOUS SYSTEM: Generalized weakness. IMPRESSION: 1. Alcoholic cirrhosis with portal hypertension and ascites. 2. Possible fungal urinary tract infection. 3. Severe protein calorie malnutrition. 4. Ulcerative colitis. 5. Depression. 6. Significant deconditioning. 7. Anemia of chronic disease. PLAN: 1. Continue current medications. 2. Fluconazole for a total of 10 days empirically. 3. Encourage p.o. intake. 4. Continue Clinimix. 5. Paracentesis p.r.n. 6. DVT prophylaxis - the patient is auto anticoagulated. 7. Decubitus precautions. 8. Stress ulcer prophylaxis. 9. Routine laboratory values. 10. Therapy. Job ID: [id number]
[2020-09-26] MEDS: AA 4.25 %/CALCIUM/LYTES/D5W 2,000 ML IV SCH (14:00)
[2020-09-26] MEDS: Mirtazapine 15 MG TAB PO SCH (20:49)
[2020-09-27] MEDS: Furosemide 40 MG TAB PO SCH (07:49)
[2020-09-27] MEDS: Saccharomyces boulardii 250 MG CAP PO SCH (09:02)
[2020-09-27] MEDS: AA 4.25 %/CALCIUM/LYTES/D5W 2,000 ML IV SCH (09:02)
[2020-09-27] MEDS: Folic Acid 1 MG TAB PO SCH (09:02)
[2020-09-27] MEDS: Nystatin Powder 15 GM BOT TOP SCH ×2 (09:03→20:36)
[2020-09-27] MEDS: Budesonide 0.5 MG/2 ML NEB NEB SCH ×2 (09:03→20:34)
[2020-09-27] MEDS: Fluconazole 100 MG TAB PO SCH (09:03)
[2020-09-27] MEDS: Spironolactone 100 MG TAB PO SCH (09:03)
[2020-09-27] MEDS: Nadolol 40 MG TAB PO SCH (10:58)
--- NOTE | 2020-09-27 12:57 | PRG ---
DATE OF SERVICE: 09/27/2020 SUBJECTIVE: Mr. Pickering is doing the same. Denies any complaints. Tolerating his medications. He states that he is trying to eat better. Denies any abdominal pain, fever, or shortness of breath. OBJECTIVE: VITAL SIGNS: He is afebrile, heart rate 75, respirations 18, oxygen saturation 93% on room air, and blood pressure 106/69. CARDIOVASCULAR SYSTEM: S1 and S2 plus. RESPIRATORY SYSTEM: Normal vesicular breath sounds. ABDOMEN: Soft, nontender. Bowel sounds heard in all quadrants. Free fluid is present. EXTREMITIES: Without cyanosis or clubbing. Significant weakness. CENTRAL NERVOUS SYSTEM: Nonfocal except for deconditioning. IMPRESSION: 1. Alcoholic cirrhosis with portal hypertension and ascites. 2. Ulcerative colitis. 3. Depression. 4. Severe protein-calorie malnutrition. 5. Anemia of chronic disease. 6. Deconditioning. PLAN: 1. Continue current medications. 2. Nutritional support. 3. Monitor for any decompensation of liver disease. 4. Drain PleurX catheter as needed. 5. Continue therapy. 6. Encourage p.o. intake. 7. Routine laboratory values. Job ID: [id number]
[2020-09-27] MEDS: Mirtazapine 15 MG TAB PO SCH (20:35)
[2020-09-28] MEDS: AA 4.25 %/CALCIUM/LYTES/D5W 2,000 ML IV SCH (04:47)
[2020-09-28] MEDS: Furosemide 40 MG TAB PO SCH (08:33)
[2020-09-28] MEDS: Spironolactone 100 MG TAB PO SCH (08:33)
[2020-09-28] MEDS: Fluconazole 100 MG TAB PO SCH (08:33)
[2020-09-28] MEDS: Nadolol 40 MG TAB PO SCH (08:33)
[2020-09-28] MEDS: Folic Acid 1 MG TAB PO SCH (08:34)
[2020-09-28] MEDS: Nystatin Powder 15 GM BOT TOP SCH ×2 (08:34→21:15)
[2020-09-28] MEDS: Saccharomyces boulardii 250 MG CAP PO SCH (08:34)
[2020-09-28] MEDS: Budesonide 0.5 MG/2 ML NEB NEB SCH ×2 (08:34→21:16)
[2020-09-28] MEDS: Mirtazapine 15 MG TAB PO SCH (21:15)
[2020-09-29] MEDS: AA 4.25 %/CALCIUM/LYTES/D5W 2,000 ML IV SCH ×2 (00:29→21:08)
[2020-09-29] MEDS: Furosemide 40 MG TAB PO SCH (08:26)
[2020-09-29] MEDS: Folic Acid 1 MG TAB PO SCH (09:15)
[2020-09-29] MEDS: Nadolol 40 MG TAB PO SCH (09:15)
[2020-09-29] MEDS: Spironolactone 100 MG TAB PO SCH (09:15)
[2020-09-29] MEDS: Fluconazole 100 MG TAB PO SCH (09:15)
[2020-09-29] MEDS: Saccharomyces boulardii 250 MG CAP PO SCH (09:15)
[2020-09-29] MEDS: Budesonide 0.5 MG/2 ML NEB NEB SCH ×2 (09:16→20:54)
[2020-09-29] MEDS: Nystatin Powder 15 GM BOT TOP SCH ×2 (09:22→20:54)
--- NOTE | 2020-09-29 16:48 | PRG ---
DATE OF SERVICE: 09/29/2020 SUBJECTIVE: Mr. Pickering is resting in bed. Denies any complaints. He apparently did not do much with therapy yesterday. He also did notice some abdominal pain with drainage of his ascitic fluid. On examination, the ascitic fluid levels are much improved and abdominal distention. Plan is to change it to every four days and also try to remove less than 2 L. Again reinforced to the patient about his p.o. intake. He has there untouched. OBJECTIVE: VITAL SIGNS: He is afebrile. Heart rate 84, respirations 18, oxygen saturation 93% on room air, blood pressure 117/82. CARDIOVASCULAR SYSTEM: S1, S2 plus. RESPIRATORY SYSTEM: Normal vesicular breath sounds. ABDOMEN: Soft. Free fluid present. Bowel sounds heard in all quadrants. No organomegaly. Nontender. EXTREMITIES: Without cyanosis, clubbing. CENTRAL NERVOUS SYSTEM: Generalized weakness. PLAN: 1. Increase Remeron to 30 mg. 2. Continue other medications. 3. Nutritional support. 4. Continue Clinimix. 5. Physical therapy. 6. Routine laboratory values. 7. PleurX drainage as needed. 8. Poor long-term prognosis. Job ID: [id number]
[2020-09-29] MEDS: Mirtazapine 30 MG TAB PO SCH (20:54)
[2020-09-30 05:31] LABS: Anion Gap 13 mmol/L (10-20); BUN (Urea Nitrogen) 24 mg/dL (8.9-20.6); Calc. Creatinine Clearance 171 mL/min (70-130); Calcium 8.4 mg/dL (7.8-10.44); Carbon Dioxide 24 mmol/L (22-29); Chloride 98 mmol/L (98-107); Glucose 114 mg/dL (70-105); Potassium 4.6 mmol/L (3.5-5.1); Sodium 130 mmol/L (136-145)
[2020-09-30 05:41] LABS: Anisocytosis SLIGHT = 6-15 cells (100X) (0-5/hpf); Band 16 % (5-11); Hemoglobin 9.5 g/dL (14.0-18.0); Lymphocytes 41 % (21-51); MDiff Complete? YES; Mean Corpuscular HGB CONC 32.3 g/dL (32.0-36.0); Mean Corpuscular Hemoglobin 30.2 pg (27.0-31.0); Mean Corpuscular Volume 93.3 fL (78.0-98.0); Mean Platelet Volume 9.5 fL (7.4-10.4); Metamyelocyte 2 % (0-0); Monocytes 5 % (0-10); Neutrophil 36 % (42-75); Ovalocytes SLIGHT = 2-5 cells (100X) (0-1/hpf); Platelet Count 105 thou/uL (130-400); Platelet Morphology Comment Appears Decreased; RBC Distribution Width 14.7 % (11.5-14.5); Red Blood Cell (RBC) Count 3.14 mill/uL (4.70-6.10); White Blood Cell (WBC) Count 3.2 thou/uL (4.8-10.8)
[2020-09-30] MEDS: Furosemide 40 MG TAB PO SCH (08:20)
[2020-09-30] MEDS: Spironolactone 100 MG TAB PO SCH (08:20)
[2020-09-30] MEDS: Nadolol 40 MG TAB PO SCH (08:57)
[2020-09-30] MEDS: Folic Acid 1 MG TAB PO SCH (08:57)
[2020-09-30] MEDS: Saccharomyces boulardii 250 MG CAP PO SCH (08:57)
[2020-09-30] MEDS: Nystatin Powder 15 GM BOT TOP SCH ×2 (08:58→21:14)
[2020-09-30] MEDS: Budesonide 0.5 MG/2 ML NEB NEB SCH ×2 (08:58→21:14)
[2020-09-30] MEDS: Fluconazole 100 MG TAB PO SCH (08:58)
[2020-09-30] MEDS: AA 4.25 %/CALCIUM/LYTES/D5W 2,000 ML IV SCH (15:57)
--- NOTE | 2020-09-30 16:41 | PRG ---
DATE OF SERVICE: 09/30/2020 SUBJECTIVE: Mr. Pickering is doing well, up in bed. His mom is in the room. She states that he is eating better. Discussed with nursing. No concerns or questions. OBJECTIVE: VITAL SIGNS: He is afebrile. Heart rate 75, respirations 18, oxygen saturation 96% on room air, blood pressure 104/71. CARDIOVASCULAR SYSTEM: S1 and S2 plus. RESPIRATORY: Normal vesicular breath sounds. ABDOMEN: Soft and nontender. Bowel sounds heard in all quadrants. EXTREMITIES: Without cyanosis or clubbing. IMPRESSION: 1. Alcoholic cirrhosis with ascites and portal hypertension. 2. History of ulcerative colitis. 3. Severe protein calorie malnutrition. 4. Deconditioning. 5. Anemia of chronic disease. PLAN: 1. Continue current medications. 2. Nutritional support with low-sodium diet. 3. DVT prophylaxis - he is already auto anticoagulated because of his cirrhosis. 4. Decubitus precautions. 5. Stress ulcer prophylaxis. 6. Paracentesis p.r.n. 7. Continue therapy. 8. Encourage p.o. intake. Job ID: [id number]
[2020-09-30] MEDS: Mirtazapine 30 MG TAB PO SCH (21:14)
[2020-10-01] MEDS: Lidocaine 4% Topical Sol 50 ML BOT TOP PRN (08:03)
[2020-10-01] MEDS: Budesonide 0.5 MG/2 ML NEB NEB SCH ×2 (08:04→20:16)
[2020-10-01] MEDS: Nystatin Powder 15 GM BOT TOP SCH ×2 (08:04→20:16)
[2020-10-01] MEDS: Spironolactone 100 MG TAB PO SCH (08:05)
[2020-10-01] MEDS: Saccharomyces boulardii 250 MG CAP PO SCH (08:05)
[2020-10-01] MEDS: Nadolol 40 MG TAB PO SCH (08:05)
[2020-10-01] MEDS: Fluconazole 100 MG TAB PO SCH (08:05)
[2020-10-01] MEDS: Folic Acid 1 MG TAB PO SCH (08:06)
[2020-10-01] MEDS: Furosemide 40 MG TAB PO SCH (08:06)
[2020-10-01] MEDS: AA 4.25 %/CALCIUM/LYTES/D5W 2,000 ML IV SCH (08:07)
--- NOTE | 2020-10-01 11:26 | PRG ---
DATE OF SERVICE: SUBJECTIVE: Mr. Pickering is sleeping, but arousable. He denies any concerns. Discussed with Nursing. Again encouraged the patient to eat well and do more with therapy. OBJECTIVE: VITAL SIGNS: He is afebrile. T-max 99, heart rate 81, respirations 18, oxygen saturation 97% on room air, blood pressure is 113/71. CARDIOVASCULAR: S1 and S2 plus. RESPIRATORY: Normal vesicular breath sounds. ABDOMEN: Soft, free fluid present, nontender. Bowel sounds heard in all quadrants. EXTREMITIES: Without cyanosis or clubbing. CENTRAL NERVOUS SYSTEM: Generalized weakness, otherwise nonfocal. LABORATORY VALUES: Sodium 130, potassium 4.6, BUN and creatinine are 24 and 0.7. Blood sugars are 110, 114, 103 and 112. CBC shows a white count of 3.2, H and H are 9.5 and 29.3 with a platelet count of 105. IMPRESSION: 1. Alcoholic cirrhosis with portal hypertension and ascites. 2. Ulcerative colitis. 3. Hyponatremia. 4. Anemia of chronic disease. 5. Significant deconditioning. 6. Severe protein calorie malnutrition. PLAN: 1. Continue current medications. 2. Nutritional support. 3. Paracentesis p.r.n. 4. Continue therapy. 5. Continue Clinimix. 6. Decubitus precautions. 7. Stress ulcer prophylaxis. 8. Encourage the patient to the eat, still not eating anywhere near enough. Job ID: [id number]
[2020-10-01] MEDS: Mirtazapine 30 MG TAB PO SCH (20:16)
[2020-10-02] MEDS: AA 4.25 %/CALCIUM/LYTES/D5W 2,000 ML IV SCH (06:00)
[2020-10-02] MEDS: Furosemide 40 MG TAB PO SCH (07:46)
[2020-10-02] MEDS: Fluconazole 100 MG TAB PO SCH (08:48)
[2020-10-02] MEDS: Saccharomyces boulardii 250 MG CAP PO SCH (08:48)
[2020-10-02] MEDS: Budesonide 0.5 MG/2 ML NEB NEB SCH ×2 (08:48→20:38)
[2020-10-02] MEDS: Folic Acid 1 MG TAB PO SCH (08:48)
[2020-10-02] MEDS: Nystatin Powder 15 GM BOT TOP SCH ×2 (08:54→20:41)
[2020-10-02] MEDS: Nadolol 40 MG TAB PO SCH (10:02)
[2020-10-02] MEDS: Spironolactone 100 MG TAB PO SCH (10:02)
--- NOTE | 2020-10-02 13:20 | PRG ---
DATE OF SERVICE: 10/02/2020 SUBJECTIVE: Mr. Pickering is up in bed. He ate almost three-fourth of his lunch. He states that he is still feeling pretty weak, but trying to participate with therapy. Denies any chest pain or shortness of breath. No family at bedside. OBJECTIVE: VITAL SIGNS: He is afebrile. Heart rate 79, respirations 18, oxygen saturation 97% on room air, blood pressure 94/65 CARDIOVASCULAR: S1-S2 plus. RESPIRATORY: No vascular breath sounds. ABDOMEN: Soft. Minimal free fluid. No guarding, rebound or rigidity. Bowel sounds in all quadrants. EXTREMITIES: Without cyanosis, clubbing. CENTRAL NERVOUS SYSTEM: Generalized weakness. IMPRESSION: 1. Alcoholic cirrhosis with portal hypertension and ascites. 2. Ulcerative colitis. 3. Depression and anxiety. 4. Severe protein-calorie malnutrition. 5. Significant deconditioning. 6. Anemia of chronic disease. PLAN: 1. Continue current medications. 2. Nutritional support. 3. Low-sodium diet. 4. PleurX catheter drainage as needed. There is hardly any fluid there. We will ask nursing to not do it today. 5. Next continue therapy. Encourage the patient to eat. 6. Routine laboratory values. 7. No family at bedside. Job ID: [id number]
[2020-10-02] MEDS: Collagenase 250 UNITS/GM Ointment 30 GM TUBE TOP PRN (14:39)
[2020-10-02] MEDS: Mirtazapine 30 MG TAB PO SCH (20:38)
[2020-10-03] MEDS: AA 4.25 %/CALCIUM/LYTES/D5W 2,000 ML IV SCH ×2 (01:45→21:14)
[2020-10-03] MEDS: Folic Acid 1 MG TAB PO SCH (08:45)
[2020-10-03] MEDS: Furosemide 40 MG TAB PO SCH (08:45)
[2020-10-03] MEDS: Nadolol 40 MG TAB PO SCH (08:45)
[2020-10-03] MEDS: Saccharomyces boulardii 250 MG CAP PO SCH (08:45)
[2020-10-03] MEDS: Fluconazole 100 MG TAB PO SCH (08:45)
[2020-10-03] MEDS: Budesonide 0.5 MG/2 ML NEB NEB SCH ×2 (08:45→21:01)
[2020-10-03] MEDS: Spironolactone 100 MG TAB PO SCH (08:46)
[2020-10-03] MEDS: Nystatin Powder 15 GM BOT TOP SCH ×2 (08:46→21:01)
--- NOTE | 2020-10-03 12:34 | PRG ---
DATE OF SERVICE: 10/03/2020 SUBJECTIVE: Mr. Pickering is doing well. He seems to be slowly improving with therapy. He apparently walked 119 feet. He is also trying to eat better. Mood also seems to be better. OBJECTIVE: VITAL SIGNS: He is afebrile, heart rate 85, respirations 18, oxygen saturation 97% on room air, blood pressure 94/62. CARDIOVASCULAR SYSTEM: S1 and S2 plus. RESPIRATORY SYSTEM: Normal vesicular breath sounds. ABDOMEN: Soft, nontender. Bowel sounds heard in all quadrants. EXTREMITIES: Without cyanosis or clubbing. CENTRAL NERVOUS SYSTEM: Improving deconditioning. IMPRESSION: 1. Alcoholic cirrhosis with portal hypertension and ascites. 2. Ulcerative colitis. 3. Depression. 4. Severe protein-calorie malnutrition. 5. Anemia of chronic disease. 6. Significant deconditioning. PLAN: 1. Continue current medications. 2. Low-sodium diet. 3. Continue therapy. 4. Continue nutritional support. 5. Recheck labs tomorrow. 6. Paracentesis p.r.n. 7. Discussed with the patient in detail. All questions answered. Job ID: [id number]
[2020-10-03] MEDS: Mirtazapine 30 MG TAB PO SCH (21:01)
[2020-10-04 05:46] LABS: #Lymphocytes 0.9 thou/uL (1.20-3.40); #Monocytes 0.3 thou/uL (0.11-0.59); %Basophils 1.4 % (0.0-1.0); %Eosinophils 0.6 % (0.0-10.0); %Lymphocytes 26.4 % (21.0-51.0); %Monocytes 10.4 % (0.0-10.0); %Neutrophils 61.3 % (42.0-75.0); Hemoglobin 9.1 g/dL (14.0-18.0); Mean Corpuscular Hemoglobin 30.5 pg (27.0-31.0); Mean Corpuscular Volume 92.4 fL (78.0-98.0); Mean Platelet Volume 10.6 fL (7.4-10.4); Platelet Count 105 thou/uL (130-400); RBC Distribution Width 14.6 % (11.5-14.5); Red Blood Cell (RBC) Count 2.99 mill/uL (4.70-6.10); White Blood Cell (WBC) Count 3.2 thou/uL (4.8-10.8)
[2020-10-04 05:58] LABS: ALT (SGPT) 17 U/L (8-55); AST (SGOT) 36 U/L (5-34); Albumin 2.9 g/dL (3.5-5.0); Alkaline Phosphatase 168 U/L (40-110); Anion Gap 13 mmol/L (10-20); BUN (Urea Nitrogen) 28 mg/dL (8.9-20.6); Bilirubin, Total 0.4 mg/dL (0.2-1.2); Calc. Creatinine Clearance 142 mL/min (70-130); Calcium 8.6 mg/dL (7.8-10.44); Carbon Dioxide 23 mmol/L (22-29); Chloride 101 mmol/L (98-107); Globulin 3.5 g/dL (2.4-3.5); Glucose 102 mg/dL (70-105); Potassium 4.7 mmol/L (3.5-5.1); Protein, Total 6.4 g/dL (6.0-8.3); Sodium 132 mmol/L (136-145)
[2020-10-04] MEDS: Furosemide 40 MG TAB PO SCH (07:53)
[2020-10-04] MEDS: Budesonide 0.5 MG/2 ML NEB NEB SCH ×2 (08:57→20:40)
[2020-10-04] MEDS: Saccharomyces boulardii 250 MG CAP PO SCH (08:59)
[2020-10-04] MEDS: Folic Acid 1 MG TAB PO SCH (08:59)
[2020-10-04] MEDS: Fluconazole 100 MG TAB PO SCH (09:00)
[2020-10-04] MEDS: Nystatin Powder 15 GM BOT TOP SCH ×2 (09:01→20:41)
[2020-10-04] MEDS: Spironolactone 100 MG TAB PO SCH (09:33)
[2020-10-04] MEDS: Nadolol 40 MG TAB PO SCH (09:33)
--- NOTE | 2020-10-04 13:25 | PRG ---
DATE OF SERVICE: 10/04/2020 SUBJECTIVE: Mr. Pickering is doing well. He apparently is doing much better with therapy. He is also trying to eat more. Discussed with nursing and no concerns. OBJECTIVE: VITAL SIGNS: He is afebrile. Heart rate 73, respirations 18, oxygen saturation 97% on room air, blood pressure 105/73. CARDIOVASCULAR SYSTEM: S1 and S2 plus. RESPIRATORY SYSTEM: Normal vesicular breath sounds. ABDOMEN: Soft, nontender. Bowel sounds heard in all quadrants. EXTREMITIES: Without cyanosis or clubbing. CENTRAL NERVOUS SYSTEM: Improving deconditioning. IMPRESSION: 1. Alcoholic cirrhosis with portal hypertension and ascites. 2. Ulcerative colitis, stable. 3. Depression, improving. 4. Severe protein-calorie malnutrition. 5. Deconditioning, improving. 6. Anemia of chronic disease. PLAN: 1. Continue current medications. 2. Low-sodium diet. 3. Continue Clinimix. 4. Therapy. 5. Decubitus precautions. 6. Stress ulcer prophylaxis. 7. Change him to DNR. Mom bought the paperwork confirming his wishes. Off note, he did have labs done today, where white count is 3.2, hemoglobin and hematocrit are 9.1 and 27.6. Sodium 132, potassium 4.7, BUN and creatinine are 28 and 0.7. AST 36, ALT 17, and total bilirubin is 0.4. Job ID: [id number]
[2020-10-04] MEDS: AA 4.25 %/CALCIUM/LYTES/D5W 2,000 ML IV SCH (17:18)
[2020-10-04] MEDS: Mirtazapine 30 MG TAB PO SCH (20:39)
[2020-10-05] MEDS: Folic Acid 1 MG TAB PO SCH (07:33)
[2020-10-05] MEDS: Fluconazole 100 MG TAB PO SCH (07:33)
[2020-10-05] MEDS: Saccharomyces boulardii 250 MG CAP PO SCH (07:33)
[2020-10-05] MEDS: Nadolol 40 MG TAB PO SCH (07:33)
[2020-10-05] MEDS: Spironolactone 100 MG TAB PO SCH (07:33)
[2020-10-05] MEDS: Furosemide 40 MG TAB PO SCH (07:33)
[2020-10-05] MEDS: Budesonide 0.5 MG/2 ML NEB NEB SCH ×2 (07:34→20:49)
[2020-10-05] MEDS: Nystatin Powder 15 GM BOT TOP SCH ×2 (07:43→20:49)
[2020-10-05] MEDS: AA 4.25 %/CALCIUM/LYTES/D5W 2,000 ML IV SCH (12:00)
[2020-10-05] MEDS: Mirtazapine 30 MG TAB PO SCH (20:48)
[2020-10-06] MEDS: AA 4.25 %/CALCIUM/LYTES/D5W 2,000 ML IV SCH (07:19)
[2020-10-06] MEDS: Furosemide 40 MG TAB PO SCH (07:29)
[2020-10-06] MEDS: Spironolactone 100 MG TAB PO SCH (07:48)
--- NOTE | 2020-10-06 08:54 | PRG ---
DATE OF SERVICE: 10/06/2020 SUBJECTIVE: Overall, the patient is doing well. However, this morning nursing noticed his blood pressure is down to 95/56. Lasix was held. Heart rate at that time 72. The patient was asymptomatic. Nursing has noticed that his PleurX catheter is not draining as much as it has been, so we are considering that he might be becoming dehydrated. OBJECTIVE: VITAL SIGNS: Temperature 97.6, pulse 66 to 72, respiratory rate 16 to 20, O2 saturation 96 to 98 on room air. Blood pressure 95/56. CARDIOVASCULAR: Regular rate and rhythm. No murmurs, gallops, or rubs. RESPIRATORY: Clear to auscultation bilaterally. ABDOMEN: Soft, nontender. Bowel sounds present in all 4 quadrants. EXTREMITIES: No cyanosis or clubbing. NERVOUS SYSTEM: Improving deconditioning. IMPRESSION: 1. Alcoholic cirrhosis, portal hypertension, ascites. 2. Ulcerative colitis, stable. 3. Depression, stable. 4. Severe protein calorie malnutrition. 5. Deconditioning, improving. 6. Anemia of chronic disease. PLAN: 1. Hold spironolactone and Lasix today and monitor blood pressure. 2. Low-sodium diet. 3. Continue Clinimix. 4. Continue PT/OT. 5. Continue decubitus precautions. 6. Stress ulcer prophylaxis. 7. The patient is a DNR with paperwork on file. 8. Continue to monitor blood pressure. Job ID: [id number] MTDD
[2020-10-06] MEDS: Nadolol 40 MG TAB PO SCH (09:30)
[2020-10-06] MEDS: Fluconazole 100 MG TAB PO SCH (09:30)
[2020-10-06] MEDS: Folic Acid 1 MG TAB PO SCH (09:30)
[2020-10-06] MEDS: Saccharomyces boulardii 250 MG CAP PO SCH ×2 (09:30→09:33)
[2020-10-06] MEDS: Nystatin Powder 15 GM BOT TOP SCH ×2 (09:31→20:57)
[2020-10-06] MEDS: Budesonide 0.5 MG/2 ML NEB NEB SCH ×2 (09:31→20:54)
[2020-10-06] MEDS: Mirtazapine 30 MG TAB PO SCH (20:54)
[2020-10-07] MEDS: AA 4.25 %/CALCIUM/LYTES/D5W 2,000 ML IV SCH ×2 (01:58→21:23)
[2020-10-07] MEDS: Furosemide 40 MG TAB PO SCH (08:00)
[2020-10-07] MEDS: Spironolactone 100 MG TAB PO SCH (09:00)
[2020-10-07] MEDS: Saccharomyces boulardii 250 MG CAP PO SCH (09:02)
[2020-10-07] MEDS: Budesonide 0.5 MG/2 ML NEB NEB SCH ×2 (09:03→21:23)
[2020-10-07] MEDS: Nadolol 40 MG TAB PO SCH (09:03)
[2020-10-07] MEDS: Folic Acid 1 MG TAB PO SCH (09:03)
[2020-10-07] MEDS: Nystatin Powder 15 GM BOT TOP SCH ×2 (09:03→21:24)
[2020-10-07] MEDS: Fluconazole 100 MG TAB PO SCH (09:03)
[2020-10-07] MEDS: Mirtazapine 30 MG TAB PO SCH (21:23)
[2020-10-08 05:38] LABS: #Lymphocytes 0.8 thou/uL (1.20-3.40); #Monocytes 0.4 thou/uL (0.11-0.59); #Neutrophils 2.5 thou/uL (1.40-6.50); %Basophils 0.5 % (0.0-1.0); %Eosinophils 0.7 % (0.0-10.0); %Lymphocytes 21.3 % (21.0-51.0); %Monocytes 10.7 % (0.0-10.0); %Neutrophils 66.9 % (42.0-75.0); Anisocytosis MODERATE=16-30 cells (100X) (0-5/hpf); MDiff Complete? YES; Mean Corpuscular HGB CONC 33.2 g/dL (32.0-36.0); Mean Corpuscular Hemoglobin 30.1 pg (27.0-31.0); Mean Corpuscular Volume 90.8 fL (78.0-98.0); Mean Platelet Volume 11.8 fL (7.4-10.4); Ovalocytes SLIGHT = 2-5 cells (100X) (0-1/hpf); Platelet Count 109 thou/uL (130-400); Platelet Morphology Comment Appears Decreased; RBC Distribution Width 14.2 % (11.5-14.5); White Blood Cell (WBC) Count 3.7 thou/uL (4.8-10.8)
[2020-10-08] MEDS: Budesonide 0.5 MG/2 ML NEB NEB SCH ×2 (08:26→21:36)
[2020-10-08] MEDS: Nadolol 40 MG TAB PO SCH (08:26)
[2020-10-08] MEDS: Spironolactone 100 MG TAB PO SCH (08:26)
[2020-10-08] MEDS: Fluconazole 100 MG TAB PO SCH (08:26)
[2020-10-08] MEDS: Nystatin Powder 15 GM BOT TOP SCH ×2 (08:27→21:36)
[2020-10-08] MEDS: Furosemide 40 MG TAB PO SCH (08:27)
[2020-10-08] MEDS: Folic Acid 1 MG TAB PO SCH (08:27)
[2020-10-08] MEDS: Saccharomyces boulardii 250 MG CAP PO SCH (08:27)
--- NOTE | 2020-10-08 13:08 | PRG ---
DATE OF SERVICE: 10/08/2020 DISCUSSION: Mr. Pickering is up in his chair, eating lunch. Discussed with nursing and he apparently is eating 50% of his food. Plan is to stop his Clinimix and see if that improves his appetite even more. He apparently is also participating with therapy. He denies any questions or concerns. He still has a flat affect, but his mood is improved. His mom is not in the room. OBJECTIVE: VITAL SIGNS: He is afebrile, heart rate 58, respirations are 16, oxygen saturation 99% on room air, and blood pressure 115/69. CARDIOVASCULAR SYSTEM: S1 and S2 plus. RESPIRATORY SYSTEM: Normal vesicular breath sounds. ABDOMEN: Soft and nontender. Fecalith present. EXTREMITIES: Without cyanosis or clubbing. CENTRAL NERVOUS SYSTEM: Improving deconditioning. LABORATORY VALUES: White count is 3.7, H and H are 9 and 27.2. Blood sugars are 98, 114, 97, and 138. IMPRESSION: 1. Alcoholic cirrhosis with portal hypertension and ascites. 2. Hypoglycemia, which is much improved. 3. Ulcerative colitis. 4. Depression. 5. Improving deconditioning. 6. Improving severe protein calorie malnutrition. PLAN: 1. Stop Clinimix if his p.o. intake is more than 50%. 2. Continue current medications. 3. Continue physical therapy. 4. Monitor ascitic fluid and paracentesis as needed. 5. Decubitus precautions. 6. DVT prophylaxis-patient . 7. Stress ulcer prophylaxis. 8. Routine laboratory values. 9. Discussed with the patient and nursing in detail. All questions were answered. Job ID: [id number]
[2020-10-08] MEDS: AA 4.25 %/CALCIUM/LYTES/D5W 2,000 ML IV SCH (16:47)
[2020-10-08] MEDS: Mirtazapine 30 MG TAB PO SCH (21:35)
[2020-10-09] MEDS: Saccharomyces boulardii 250 MG CAP PO SCH (08:25)
[2020-10-09] MEDS: Budesonide 0.5 MG/2 ML NEB NEB SCH (08:25)
[2020-10-09] MEDS: Furosemide 40 MG TAB PO SCH (08:26)
[2020-10-09] MEDS: Fluconazole 100 MG TAB PO SCH (08:26)
[2020-10-09] MEDS: Folic Acid 1 MG TAB PO SCH (08:26)
[2020-10-09] MEDS: Nystatin Powder 15 GM BOT TOP SCH ×2 (08:29→21:05)
[2020-10-09] MEDS: Spironolactone 100 MG TAB PO SCH (10:00)
[2020-10-09] MEDS: AA 4.25 %/CALCIUM/LYTES/D5W 2,000 ML IV SCH (11:42)
[2020-10-09] MEDS: Nadolol 40 MG TAB PO SCH (11:43)
--- NOTE | 2020-10-09 13:01 | PRG ---
DATE OF SERVICE: 10/09/2020 SUBJECTIVE: Mr. Pickering is up on the side of his bed eating lunch. He is doing well. They are not doing any drainage as his abdominal girth has drastically reduced with improvement in his appetite and his activity as well as the Lasix and the Aldactone finally starting to work. We will also change his Tylenol to tablets and his breathing treatments to as needed. OBJECTIVE: VITAL SIGNS: He is afebrile, heart rate 83, respirations 16, oxygen saturation 99% on room air, blood pressure 97/67. CARDIOVASCULAR: S1, S2 plus. RESPIRATORY: Normal vesicular breath sounds. ABDOMEN: Soft, nontender. Bowel sounds heard in all quadrants. EXTREMITIES: Without cyanosis or clubbing. CENTRAL NERVOUS SYSTEM: Improving deconditioning. LABORATORY DATA: Blood sugars are 95, 92, 103 and 101. IMPRESSION: 1. Alcoholic cirrhosis with ascites and portal hypertension. 2. Ulcerative colitis. 3. Anemia of chronic disease. 4. Depression. 5. Improving severe protein calorie malnutrition and improving deconditioning. PLAN: 1. Change breathing treatments to p.r.n. 2. Change Tylenol to tablets. 3. Discontinue scheduled paracentesis. 4. Continue therapy. 5. Continue to monitor blood sugars. 6. Routine laboratory values. Job ID: [id number]
[2020-10-09] MEDS: Gentamicin Ophth Soln 0.3% 5 ml Bottle R EYE SCH ×2 (17:00→21:06)
[2020-10-09] MEDS: Mirtazapine 30 MG TAB PO SCH (21:05)
[2020-10-10] MEDS: Gentamicin Ophth Soln 0.3% 5 ml Bottle R EYE SCH ×6 (01:51→21:01)
[2020-10-10] MEDS: AA 4.25 %/CALCIUM/LYTES/D5W 2,000 ML IV SCH (06:00)
[2020-10-10] MEDS: Furosemide 40 MG TAB PO SCH (08:10)
[2020-10-10] MEDS: Folic Acid 1 MG TAB PO SCH (08:10)
[2020-10-10] MEDS: Saccharomyces boulardii 250 MG CAP PO SCH (08:10)
[2020-10-10] MEDS: Nystatin Powder 15 GM BOT TOP SCH ×2 (08:11→21:02)
[2020-10-10] MEDS: Spironolactone 100 MG TAB PO SCH (09:57)
--- NOTE | 2020-10-10 13:02 | PRG ---
DATE OF SERVICE: 10/10/2020 SUBJECTIVE: Mr. Pickering is doing well. He is eating better, but discussed with the dietitians still hovering around the 50% hadley, so plan is to leave the Clinimix on for now. The eye drops seems to be helping with his stye. OBJECTIVE: VITAL SIGNS: He is afebrile. Heart rate 84, respirations 18, oxygen saturation 96% on room air, blood pressure 113/81. CARDIOVASCULAR: S1 and S2 plus. RESPIRATORY: Normal vesicular breath sounds. ABDOMEN: Soft, nontender. Free fluid present. EXTREMITIES: Without cyanosis or clubbing. CENTRAL NERVOUS SYSTEM: Improving deconditioning. IMPRESSION: 1. Alcoholic cirrhosis with portal hypertension and ascites. 2. Ulcerative colitis. 3. Improving deconditioning. 4. Improving severe protein calorie malnutrition. 5. Resolving stye to the right upper eyelid and anemia of chronic disease. PLAN: 1. Continue current medications. 2. Nutritional support. 3. Physical therapy. 4. Routine laboratory values. 5. Encourage p.o. intake. 6. No family at bedside. 7. Discussed with nursing. Job ID: [id number]
[2020-10-10] MEDS: Nadolol 40 MG TAB PO SCH (21:01)
[2020-10-10] MEDS: Mirtazapine 30 MG TAB PO SCH (21:01)
[2020-10-11] MEDS: Gentamicin Ophth Soln 0.3% 5 ml Bottle R EYE SCH ×6 (01:22→20:53)
[2020-10-11] MEDS: AA 4.25 %/CALCIUM/LYTES/D5W 2,000 ML IV SCH ×2 (03:54→23:53)
[2020-10-11] MEDS: Furosemide 40 MG TAB PO SCH (08:06)
[2020-10-11] MEDS: Saccharomyces boulardii 250 MG CAP PO SCH (09:04)
[2020-10-11] MEDS: Folic Acid 1 MG TAB PO SCH (09:04)
[2020-10-11] MEDS: Nystatin Powder 15 GM BOT TOP SCH ×2 (09:05→20:53)
[2020-10-11] MEDS: Spironolactone 100 MG TAB PO SCH (09:05)
--- NOTE | 2020-10-11 16:16 | PRG ---
DATE OF SERVICE: 10/11/2020 SUBJECTIVE: Mr. Pickering is doing well. His right upper eyelid is looking much better. He is doing better with eating and with therapy. Denies any questions or concerns. OBJECTIVE: VITAL SIGNS: He is afebrile, heart rate 71, respirations 18, oxygen saturation 96% on room air, blood pressure 116/76. CARDIOVASCULAR SYSTEM: S1 and S2 plus. RESPIRATORY SYSTEM: Normal vesicular breath sounds. ABDOMEN: Soft, nontender. Bowel sounds heard in all quadrants. EXTREMITIES: Without cyanosis or clubbing. Improving deconditioning. IMPRESSION: 1. Alcoholic cirrhosis with ascites and portal hypertension. 2. Ulcerative colitis. 3. Improving severe protein-calorie malnutrition. 4. Depression, improving. 5. Improving deconditioning. 6. Anemia of chronic disease. PLAN: 1. Continue current medications. 2. Nutritional support. 3. Monitor free fluid accumulation in his abdomen. 4. DVT prophylaxis - the patient is auto anticoagulated. 5. Decubitus precautions. 6. Stress ulcer prophylaxis. 7. Physical therapy. 8. Routine laboratory values. 9. Continue Clinimix. Job ID: [id number]
[2020-10-11] MEDS: Nadolol 40 MG TAB PO SCH (20:52)
[2020-10-11] MEDS: Mirtazapine 30 MG TAB PO SCH (20:52)
[2020-10-12] MEDS: Gentamicin Ophth Soln 0.3% 5 ml Bottle R EYE SCH ×6 (01:07→20:21)
[2020-10-12] MEDS: Folic Acid 1 MG TAB PO SCH (08:29)
[2020-10-12] MEDS: Spironolactone 100 MG TAB PO SCH (08:29)
[2020-10-12] MEDS: Saccharomyces boulardii 250 MG CAP PO SCH (08:30)
[2020-10-12] MEDS: Lidocaine 4% Topical Sol 50 ML BOT TOP PRN (08:30)
[2020-10-12] MEDS: Collagenase 250 UNITS/GM Ointment 30 GM TUBE TOP PRN (08:30)
[2020-10-12] MEDS: Furosemide 40 MG TAB PO SCH (08:31)
[2020-10-12] MEDS: Nystatin Powder 15 GM BOT TOP SCH ×2 (08:32→20:20)
--- NOTE | 2020-10-12 15:10 | PRG ---
DATE OF SERVICE: 10/12/2020 SUBJECTIVE: Mr. Pickering is up in bed. He just finished lunch. He is happy with his progress. He is walking close to 200 feet. He has not required any paracentesis for the last 5 days. Denies any chest pain or shortness of breath. He is happy with his progress. OBJECTIVE: VITAL SIGNS: He is afebrile, heart rate 80, respirations 18, oxygen saturation 96% on room air, blood pressure 113/74. CARDIOVASCULAR: S1-S2 plus. RESPIRATORY: Normal vesicular breath sounds. ABDOMEN: Soft and nontender. Bowel sounds heard in all quadrants. EXTREMITIES: Without cyanosis or clubbing. CENTRAL NERVOUS SYSTEM: Improving deconditioning. LABORATORY DATA: His blood sugars are 116, 99, 107, 118. IMPRESSION: 1. Alcoholic cirrhosis with portal hypertension and ascites. 2. Ulcerative colitis. 3. Improving severe protein calorie malnutrition. 4. Improving deconditioning. 5. Anemia of chronic disease. 6. Hypoglycemia, resolved. PLAN: 1. Stop Accu-Cheks. 2. Continue Clinimix. 3. Continue to encourage p.o. intake. 4. Physical therapy. 5. Continue current medications. 6. Routine laboratory values. 7. No family at bedside. Job ID: [id number]
[2020-10-12] MEDS: AA 4.25 %/CALCIUM/LYTES/D5W 2,000 ML IV SCH (19:35)
[2020-10-12] MEDS: Mirtazapine 30 MG TAB PO SCH (20:21)
[2020-10-12] MEDS: Nadolol 40 MG TAB PO SCH (20:21)
[2020-10-13] MEDS: Gentamicin Ophth Soln 0.3% 5 ml Bottle R EYE SCH ×6 (01:01→20:20)
[2020-10-13] MEDS: Spironolactone 100 MG TAB PO SCH (08:12)
[2020-10-13] MEDS: Saccharomyces boulardii 250 MG CAP PO SCH (08:12)
[2020-10-13] MEDS: Folic Acid 1 MG TAB PO SCH (08:12)
[2020-10-13] MEDS: Furosemide 40 MG TAB PO SCH (08:12)
[2020-10-13] MEDS: Nystatin Powder 15 GM BOT TOP SCH ×2 (08:14→20:19)
--- NOTE | 2020-10-13 15:57 | PRG ---
DATE OF SERVICE: 10/13/2020 SUBJECTIVE: Mr. Pickering is doing well except he has a little sore in the tip of his nostril. It is red and inflamed. No drainage. Doing well otherwise. OBJECTIVE: VITAL SIGNS: He is afebrile, heart rate 78, respirations 18, oxygen saturation 93% on room air, blood pressure 110/71. CARDIOVASCULAR: S1-S2 plus. RESPIRATORY: Normal vesicular breath sounds. ABDOMEN: Soft and nontender. Bowel sounds heard in all quadrants. EXTREMITIES: Without cyanosis or clubbing. CENTRAL NERVOUS SYSTEM: Improving deconditioning. IMPRESSION: 1. Possible localized cellulitis/furunculosis to the nostril. 2. Alcoholic cirrhosis with portal hypertension and hepatitis. 3. Ulcerative colitis. 4. Anemia of chronic disease. 5. Improving deconditioning. 6. Improving severe protein calorie malnutrition. PLAN: 1. Continue current medications. 2. Add Bactrim DS p.o. b.i.d. for 5 days. 3. Monitor potassium levels. 4. Continue current regimen. 5. Nutritional support. 6. Continue therapy. 7. Discussed with the patient and his mom in detail. All questions answered. Job ID: [id number]
[2020-10-13] MEDS: AA 4.25 %/CALCIUM/LYTES/D5W 2,000 ML IV SCH (16:22)
[2020-10-13] MEDS: Mirtazapine 30 MG TAB PO SCH (20:20)
[2020-10-13] MEDS: Sulfameth/Trimethoprim DS 800-160mg TAB PO SCH (20:20)
[2020-10-13] MEDS: Nadolol 40 MG TAB PO SCH (20:20)
[2020-10-14] MEDS: Gentamicin Ophth Soln 0.3% 5 ml Bottle R EYE SCH ×6 (00:04→20:45)
[2020-10-14 05:31] LABS: #Basophils 0.1 thou/uL (0.0-0.2); #Eosinphils 0.1 thou/uL (0.0-0.7); #Lymphocytes 0.6 thou/uL (1.20-3.40); #Monocytes 0.5 thou/uL (0.11-0.59); #Neutrophils 4.2 thou/uL (1.40-6.50); %Eosinophils 2.7 % (0.0-10.0); %Lymphocytes 10.7 % (21.0-51.0); %Monocytes 9.4 % (0.0-10.0); %Neutrophils 76.2 % (42.0-75.0); Hemoglobin 8.6 g/dL (14.0-18.0); Mean Corpuscular HGB CONC 32.8 g/dL (32.0-36.0); Mean Corpuscular Hemoglobin 29.2 pg (27.0-31.0); Mean Platelet Volume 10.5 fL (7.4-10.4); Platelet Count 171 thou/uL (130-400); RBC Distribution Width 13.9 % (11.5-14.5); Red Blood Cell (RBC) Count 2.94 mill/uL (4.70-6.10); White Blood Cell (WBC) Count 5.5 thou/uL (4.8-10.8)
[2020-10-14 05:39] LABS: Anion Gap 13 mmol/L (10-20); BUN (Urea Nitrogen) 25 mg/dL (8.9-20.6); Calc. Creatinine Clearance 152 mL/min (70-130); Calcium 9.3 mg/dL (7.8-10.44); Carbon Dioxide 23 mmol/L (22-29); Chloride 101 mmol/L (98-107); Glucose 114 mg/dL (70-105); Potassium 4.2 mmol/L (3.5-5.1); Sodium 133 mmol/L (136-145)
[2020-10-14] MEDS: Saccharomyces boulardii 250 MG CAP PO SCH (08:57)
[2020-10-14] MEDS: Sulfameth/Trimethoprim DS 800-160mg TAB PO SCH ×2 (08:57→20:45)
[2020-10-14] MEDS: Folic Acid 1 MG TAB PO SCH (08:58)
[2020-10-14] MEDS: Furosemide 40 MG TAB PO SCH (08:59)
[2020-10-14] MEDS: Nystatin Powder 15 GM BOT TOP SCH ×2 (09:00→20:46)
[2020-10-14] MEDS: AA 4.25 %/CALCIUM/LYTES/D5W 2,000 ML IV SCH (12:41)
[2020-10-14] MEDS: Spironolactone 100 MG TAB PO SCH (12:48)
--- NOTE | 2020-10-14 14:52 | PRG ---
DATE OF SERVICE: 10/14/2020 SUBJECTIVE: Mr. Pickering is doing well. The Bactrim seems to be helping. He is tolerating this. He states that his pain in his nose is much improved. He is also eating close to 60% of his meals. OBJECTIVE: VITAL SIGNS: He is afebrile. Heart rate 74, respirations 18, oxygen saturation 93% on room air, blood pressure 88/54. CARDIOVASCULAR: S1 and S2 plus. RESPIRATORY: Normal vesicular breath sounds. ABDOMEN: Soft and nontender. Bowel sounds heard in all quadrants. EXTREMITIES: Without cyanosis or clubbing. CENTRAL NERVOUS SYSTEM: Improving deconditioning. LABORATORY VALUES: White count is 5.5, H and H are 8.6 and 26.1. Sodium 133, potassium 4.2, BUN and creatinine 25 and 0.67. Blood sugars are 107, 118, 121, and 106. IMPRESSION: 1. Alcoholic cirrhosis with portal hypertension and ascites. 2. Ulcerative colitis. 3. Anemia of chronic disease. 4. Hyponatremia. 5. Improving cellulitis to his nostrils. 6. Improving deconditioning. 7. Improving severe protein calorie malnutrition. PLAN: 1. Continue current medications. 2. Nutritional support. 3. Physical therapy. 4. Continue Bactrim for 5 more days. 5. Paracentesis p.r.n. 6. Possibly stop Clinimix in the next couple of days. 7. Routine laboratory values. 8. Discussed with the patient and nursing in detail. All questions answered. Job ID: [id number]
[2020-10-14] MEDS: Mirtazapine 30 MG TAB PO SCH (20:46)
[2020-10-14] MEDS: Nadolol 40 MG TAB PO SCH (20:49)
[2020-10-15] MEDS: Furosemide 40 MG TAB PO SCH (08:13)
[2020-10-15] MEDS: Spironolactone 100 MG TAB PO SCH (08:13)
[2020-10-15] MEDS: Sulfameth/Trimethoprim DS 800-160mg TAB PO SCH ×2 (08:14→20:21)
[2020-10-15] MEDS: Nystatin Powder 15 GM BOT TOP SCH ×2 (08:14→20:22)
[2020-10-15] MEDS: Folic Acid 1 MG TAB PO SCH (08:14)
[2020-10-15] MEDS: Saccharomyces boulardii 250 MG CAP PO SCH (08:14)
[2020-10-15] MEDS: AA 4.25 %/CALCIUM/LYTES/D5W 2,000 ML IV SCH (08:15)
[2020-10-15] MEDS: Acetaminophen 500 MG TAB PO PRN (09:25)
--- NOTE | 2020-10-15 13:06 | PRG ---
DATE OF SERVICE: SUBJECTIVE: Mr. Pickering is resting in bed. He is eating lunch well. Nursing states that he is eating more than 50%. We will discontinue his Clinimix after today. His cellulitis seems to be improving with Bactrim. No diarrhea. OBJECTIVE: VITAL SIGNS: He is afebrile, heart rate 81, respirations 18, oxygen saturation 97% on room air, blood pressure 102/71. CARDIOVASCULAR: S1 and S2 plus. RESPIRATORY: Normal vesicular breath sounds. ABDOMEN: Soft. Minimal free fluid. Bowel sounds heard in all quadrants. EXTREMITIES: Without cyanosis or clubbing. CENTRAL NERVOUS SYSTEM: Improving deconditioning. IMPRESSION: Alcoholic cirrhosis with portal hypertension and ascites. SECONDARY DIAGNOSES: 1. Ulcerative colitis. 2. Depression. 3. Improving severe protein calorie malnutrition. 4. Improving deconditioning. 5. Resolving facial cellulitis. PLAN: 1. Continue current medications. 2. Nutritional support. 3. Stop Clinimix. 4. Physical therapy. 5. Routine laboratory values. 6. Monitor ascites and paracentesis p.r.n. Job ID: [id number]
[2020-10-15] MEDS: Mirtazapine 30 MG TAB PO SCH (20:20)
[2020-10-15] MEDS: Nadolol 40 MG TAB PO SCH (20:20)
[2020-10-16] MEDS: Folic Acid 1 MG TAB PO SCH (08:14)
[2020-10-16] MEDS: Spironolactone 100 MG TAB PO SCH (08:14)
[2020-10-16] MEDS: Furosemide 40 MG TAB PO SCH (08:14)
[2020-10-16] MEDS: Sulfameth/Trimethoprim DS 800-160mg TAB PO SCH ×2 (08:15→20:59)
[2020-10-16] MEDS: Nystatin Powder 15 GM BOT TOP SCH ×2 (08:15→21:01)
[2020-10-16] MEDS: Saccharomyces boulardii 250 MG CAP PO SCH (08:15)
--- NOTE | 2020-10-16 13:15 | PRG ---
DATE OF SERVICE: 10/16/2020 SUBJECTIVE: Mr. Pickering is up in bed. He just finished lunch. He is off his Clinimix. His mom is in the room. He is happy with his progress. He has not required paracentesis for almost 10 days. He does have some free fluid. We are going to check with GI to see how to remove the PleurX drain, but the plan will be to do a paracentesis max volume the PleurX drain. The patient is doing well otherwise. No concerns or questions. Hopefully, we will have a date for him to be discharged. OBJECTIVE: VITAL SIGNS: He is afebrile, heart rate 89, respirations 18, oxygen saturation 99% on room air, and blood pressure 108/74. CARDIOVASCULAR SYSTEM: S1 and S2 plus. RESPIRATORY SYSTEM: Normal vesicular breath sounds. ABDOMEN: Soft. Free fluid present. Bowel sounds heard in all quadrants. EXTREMITIES: Without cyanosis pr clubbing. CENTRAL NERVOUS SYSTEM: Improving deconditioning. IMPRESSION: 1. Alcoholic cirrhosis with portal hypertension and ascites. 2. Ulcerative colitis. 3. Depression, much improved. 4. Improving severe protein calorie malnutrition. 5. Improving deconditioning. 6. Anemia of chronic disease. PLAN: 1. Continue current medication. 2. Continue Bactrim for his folliculitis/cellulitis in his nostril. 3. Continue therapy. 4. Discharge planning. 5. Routine laboratory values. 6. Paracentesis p.r.n. Job ID: [id number]
[2020-10-16] MEDS ORDERED: Spironolactone 25 MG TAB PO SCH (15:00)
[2020-10-16] MEDS: Nadolol 40 MG TAB PO SCH (20:59)
[2020-10-16] MEDS: Mirtazapine 30 MG TAB PO SCH (20:59)
[2020-10-17] MEDS: Folic Acid 1 MG TAB PO SCH (08:11)
[2020-10-17] MEDS: Saccharomyces boulardii 250 MG CAP PO SCH (08:11)
[2020-10-17] MEDS: Sulfameth/Trimethoprim DS 800-160mg TAB PO SCH ×2 (08:11→20:34)
[2020-10-17] MEDS: Spironolactone 25 MG TAB PO SCH (08:12)
[2020-10-17] MEDS: Furosemide 40 MG TAB PO SCH (08:12)
[2020-10-17] MEDS: Nystatin Powder 15 GM BOT TOP SCH ×2 (08:12→20:37)
--- NOTE | 2020-10-17 13:22 | PRG ---
DATE OF SERVICE: 10/17/2020 SUBJECTIVE: Mr. Pickering is doing well. Denies any complaints. Happy with his progress. Discussed with Therapy and they anticipate him being ready for discharge on the early next week. He needs Home Health arranged. His [place] catheter needs to be removed prior to discharge. I have discussed with nursing and they are going to arrange it. We are going to try to done prior to catheter removal so that he has almost no accumulation. OBJECTIVE: VITAL SIGNS: He is afebrile, heart rate 75, respirations 16, oxygen saturation 99% on room air, and blood pressure 111/70. CARDIOVASCULAR SYSTEM: S1 and S2 plus. RESPIRATORY SYSTEM: Normal vesicular breath sounds. ABDOMEN: Soft, nontender. Bowel sounds heard in all quadrants. Free fluid present. EXTREMITIES: Without cyanosis or clubbing. CENTRAL NERVOUS SYSTEM: Improving deconditioning. IMPRESSION: 1. Alcoholic cirrhosis with portal hypertension and ascites. 2. Ulcerative colitis. 3. Improving depression. 4. Improving severe protein-calorie malnutrition. PLAN: 1. Continue current medications. 2. Case Management consult to arrange Home Health. 3. Remove [place] catheter and IV access prior to discharge. 4. Paracentesis prior to discharge. 5. Discharge planning. 6. Continue therapy. Job ID: [id number]
[2020-10-17] MEDS: Nadolol 40 MG TAB PO SCH (20:34)
[2020-10-17] MEDS: Mirtazapine 30 MG TAB PO SCH (20:34)
[2020-10-18] MEDS: Saccharomyces boulardii 250 MG CAP PO SCH (08:43)
[2020-10-18] MEDS: Folic Acid 1 MG TAB PO SCH (08:43)
[2020-10-18] MEDS: Spironolactone 25 MG TAB PO SCH (08:43)
[2020-10-18] MEDS: Sulfameth/Trimethoprim DS 800-160mg TAB PO SCH ×2 (08:43→20:55)
[2020-10-18] MEDS: Furosemide 40 MG TAB PO SCH (08:44)
[2020-10-18] MEDS: Nystatin Powder 15 GM BOT TOP SCH ×2 (08:44→20:55)
--- NOTE | 2020-10-18 14:03 | PRG ---
DATE OF SERVICE: 10/18/2020 SUBJECTIVE: Mr. Pickering is doing well. Denies any complaints. Resting comfortably. Tolerating his p.o. intake. Discharge plan is underway. He prefers [facility]. Please consider this note as a [id number] documentation for home health. The patient is considered homebound. He has been asked not to drive. He continues to require therapy to regain his strength and balance back. According to our therapist here, he will need outpatient physical therapy and occupational therapy since he has the [place] catheter and recovering from his alcoholic cirrhosis he will also need nursing home visits to monitor his blood pressure and his abdominal girth. The patient will be followed by his PCP. I will sign the initial orders for home health. All further orders need to go to his PCP. On a different note, I did talk with Dr. Hernandez with [facility] and he states that removing the [place] catheter leaves a pretty significant hole and if the patient has any ascites, he usually leaks and it prevents the hole from closing, and he would prefer to leave it in if the catheter is working and if there is no signs of any infection and if he may need p.r.n. paracentesis. I did discuss that with the patient and the staff. Plan is to drain some ascitic fluid today to make sure it is functioning and the patient is comfortable following up with his PCP and monitoring his abdominal girth and removing it as outpatient. OBJECTIVE: VITAL SIGNS: He is afebrile, heart rate 72, respirations 16, oxygen saturation 97% on room air, blood pressure 101/64. CARDIOVASCULAR SYSTEM: S1 and S2 plus. RESPIRATORY SYSTEM: Normal vesicular breath sounds. ABDOMEN: Soft. Minimal free fluid present. Nontender. EXTREMITIES: Without cyanosis or clubbing. CENTRAL NERVOUS SYSTEM: Improving deconditioning. IMPRESSION: 1. Alcoholic cirrhosis with portal hypertension and ascites. 2. Ulcerative colitis. 3. Improving depression. 4. Improving severe protein-calorie malnutrition. 5. Improving deconditioning. 6. Anemia of chronic disease. PLAN: 1. Continue current medications. 2. Nutritional support. 3. Physical therapy. 4. Discharge planning. 5. Routine laboratory values. 6. Discussed with the patient and nursing in detail. All questions were answered. Job ID: [id number]
[2020-10-18] MEDS: Nadolol 40 MG TAB PO SCH (20:55)
[2020-10-18] MEDS: Mirtazapine 30 MG TAB PO SCH (20:55)
[2020-10-19] MEDS: Furosemide 40 MG TAB PO SCH (07:56)
[2020-10-19] MEDS: Folic Acid 1 MG TAB PO SCH (07:56)
[2020-10-19] MEDS: Saccharomyces boulardii 250 MG CAP PO SCH (07:56)
[2020-10-19] MEDS: Nystatin Powder 15 GM BOT TOP SCH ×2 (07:57→20:32)
--- NOTE | 2020-10-19 08:15 | PRG ---
DATE OF SERVICE: 10/19/2020 SUBJECTIVE: Mr. Pickering is doing well. Paracentesis was attempted yesterday. No evidence for blockage in the [place] catheter, but they were able to drain only like 30 mL. He hardly has any ascites, which is good. He continues to improve. Tentative plan is for him to go home on Thursday with home health. He will follow up with his PCP and GI as outpatient once they decide that the [place] catheter can come out. His IV access will be discontinued prior to discharge. All of these medicines have already been sent into his pharmacy I think it is [facility] in [place]. OBJECTIVE: VITAL SIGNS: He is afebrile, heart rate 75, respirations 18, oxygen saturation 98% on room air, blood pressure 114/73. CARDIOVASCULAR: S1 and S2, plus. RESPIRATORY SYSTEM: Normal vesicular breath sounds. ABDOMEN: Soft, nontender. Bowel sounds heard in all quadrants. EXTREMITIES: Without cyanosis, or clubbing. CENTRAL NERVOUS SYSTEM: Improving deconditioning. IMPRESSION: 1. Alcoholic cirrhosis with portal hypertension and ascites. 2. Ulcerative colitis. 3. Improving depression. 4. Much improved deconditioning. 5. Much improved severe protein calorie malnutrition and anemia of chronic disease, stable. PLAN: 1. Continue current medications. 2. Nutritional support with low-sodium diet. 3. Monitor for any decompensation of liver disease. 4. Continue therapy. 5. Discharge planning. 6. Routine laboratory values. 7. Dr. Steven on-call this weekend. Job ID: [id number]
[2020-10-19] MEDS: Spironolactone 25 MG TAB PO SCH (09:29)
[2020-10-19] MEDS: Nadolol 40 MG TAB PO SCH (20:32)
[2020-10-19] MEDS: Mirtazapine 30 MG TAB PO SCH (20:33)
[2020-10-20] MEDS: Furosemide 40 MG TAB PO SCH (08:13)
[2020-10-20] MEDS: Folic Acid 1 MG TAB PO SCH (08:13)
[2020-10-20] MEDS: Spironolactone 25 MG TAB PO SCH (08:13)
[2020-10-20] MEDS: Saccharomyces boulardii 250 MG CAP PO SCH (08:13)
[2020-10-20] MEDS: Nystatin Powder 15 GM BOT TOP SCH ×2 (08:14→20:41)
[2020-10-20] MEDS: Mirtazapine 30 MG TAB PO SCH (20:41)
[2020-10-20] MEDS: Nadolol 40 MG TAB PO SCH (20:41)
--- NOTE | 2020-10-21 06:35 | PRG ---
DATE OF SERVICE: 10/21/2020 SUBJECTIVE: The patient lying in bed, resting well with no complaints. He looks amazingly better from the last time I saw him several weeks ago. He is having no ascites. He is having increased appetite. He is still very weak, but is working with therapy and is preparing for discharge next week. OBJECTIVE: VITAL SIGNS: Shows temperature is 98.3, pulse 81, respirations 16, O2 sats 99% on room air, blood pressure is 119/79. LUNGS: Clear. CARDIAC: Shows regular rhythm. ABDOMEN: Soft, scaphoid and nontender. SKIN: Extremities display no edema, clubbing, cyanosis, but significantly decreased muscle size. ASSESSMENT: 1. Stable alcoholic cirrhosis, portal hypertension with resolved ascites. 2. Stable ulcerative colitis. 3. Significant deconditioning, but improving. 4. Severe protein calorie malnutrition and muscle atrophy, but improving. PLAN: 1. Continue PT, OT. 2. Continue nutritional support. 3. Continue to monitor for recurrent ascites and decompensation of severe liver disease. 4. Discharge planning for next week. Job ID: [id number]
[2020-10-21] MEDS: Furosemide 40 MG TAB PO SCH (08:01)
[2020-10-21] MEDS: Saccharomyces boulardii 250 MG CAP PO SCH (08:01)
[2020-10-21] MEDS: Spironolactone 25 MG TAB PO SCH (08:01)
[2020-10-21] MEDS: Folic Acid 1 MG TAB PO SCH (08:01)
[2020-10-21] MEDS: Nystatin Powder 15 GM BOT TOP SCH ×2 (08:02→20:19)
[2020-10-21 10:34] VITALS: BMI 21.7
[2020-10-21] MEDS: Acetaminophen 500 MG TAB PO PRN (13:56)
--- NOTE | 2020-10-21 17:37 | RAD ---
Exam: Left elbow 3 views: HISTORY: Pain COMPARISON: None FINDINGS: Extensive vascular calcifications. Bony demineralization. No evidence for fracture, dislocation, or other significant acute osseous abnormality. IMPRESSION: No significant acute process.
[2020-10-21] MEDS: Nadolol 40 MG TAB PO SCH (20:19)
[2020-10-21] MEDS: Mirtazapine 30 MG TAB PO SCH (20:19)
--- NOTE | 2020-10-22 07:21 | PRG ---
DATE OF SERVICE: 10/21/[address] Dominguez Álvarez. SUBJECTIVE: The patient is sitting up in his bed finishing supper. He has had complaints of significant left elbow pain after awakening with trauma to his left medial epicondyle this morning. It is continued and therefore at his request, has had an x-ray done. OBJECTIVE: MUSCULOSKELETAL: Left medial epicondyle is significantly tender, particularly over the ulnar nerve. X-ray of the left elbow, however, shows no abnormalities. LUNGS: Clear. CARDIAC: Shows regular rhythm. ABDOMEN: Soft. No fluid. SKIN/EXTREMITIES: Show no edema. VITAL SIGNS: Show temperature 97.9, pulse 93, respirations 20, O2 sats 98% on room air, and blood pressure is 115/84. ASSESSMENT: 1. Cirrhosis, portal hypertension, ascites with remarkable improvement over the last several weeks with resolved ascites. 2. Stable ulcerative colitis. 3. Trauma to the left medial epicondyle, possible ulnar trauma, but with no evidence of bony abnormality. 4. Significant deconditioning, improving greatly. 5. Protein calorie malnutrition and muscle atrophy also improving with increased oral intake. PLAN: 1. Discharge planning per Dr. Álvarez. 2. Continue PT/OT. 3. Continue to monitor tenderness over the left medial epicondyle. It should resolve as appears to be a contusion of the ulnar nerve. Job ID: [id number]
[2020-10-22] MEDS: Folic Acid 1 MG TAB PO SCH (08:01)
[2020-10-22] MEDS: Furosemide 40 MG TAB PO SCH (08:01)
[2020-10-22] MEDS: Saccharomyces boulardii 250 MG CAP PO SCH (08:01)
[2020-10-22] MEDS: Spironolactone 25 MG TAB PO SCH (08:01)
[2020-10-22] MEDS: Nystatin Powder 15 GM BOT TOP SCH ×2 (08:02→20:21)
--- NOTE | 2020-10-22 14:24 | PRG ---
DATE OF SERVICE: 10/22/2020 SUBJECTIVE: Mr. Pickering is doing well. Denies any complaints. His nasal folliculitis has pretty much resolved. He is getting stronger. He is anticipated discharge tomorrow. I advised him to follow up with his PCP in about 3 to 4 weeks. No concerns or questions. OBJECTIVE: VITAL SIGNS: He is afebrile, heart rate 75, respirations 18, oxygen saturation 96% on room air, blood pressure 97/60. CARDIOVASCULAR SYSTEM: S1 and S2 plus. RESPIRATORY SYSTEM: Normal vesicular breath sounds. ABDOMEN: Soft, nontender. Bowel sounds heard in all quadrants. EXTREMITIES: Without cyanosis, clubbing. CENTRAL NERVOUS SYSTEM: Improving deconditioning. IMPRESSION: 1. Alcoholic cirrhosis with portal hypertension and ascites. 2. Ulcerative colitis. 3. Improving depression. 4. Much improved severe protein-calorie malnutrition. 5. Much improved deconditioning. 6. Anemia of chronic disease. PLAN: 1. Continue current medications. 2. Low-sodium diet. 3. [place] catheter care. 4. Discharge to home with home health. The patient has chosen [facility]. He is homebound. He qualifies to get continued physical therapy. He also needs correction visit for the wound care to his right chest wall, which has almost resolved and management of his [place] catheter. Please consider this note as [id number] documentation. Home health will be managed by his PCP. For full details, please see chart. Job ID: [id number]
[2020-10-22] MEDS: Mirtazapine 30 MG TAB PO SCH (20:20)
[2020-10-22] MEDS: Nadolol 40 MG TAB PO SCH (20:21)
[2020-10-23] MEDS: Furosemide 40 MG TAB PO SCH (07:33)
[2020-10-23] MEDS: Folic Acid 1 MG TAB PO SCH (08:50)
[2020-10-23] MEDS: Saccharomyces boulardii 250 MG CAP PO SCH (08:50)
[2020-10-23] MEDS: Spironolactone 25 MG TAB PO SCH (08:50)
[2020-10-23] MEDS: Nystatin Powder 15 GM BOT TOP SCH (08:51)
[2020-10-23 14:55] VITALS: BP 103/71; TEMP 98.3
--- NOTE | 2020-10-24 02:23 | DIS ---
DATE OF ADMISSION: 09/13/2020 DATE OF DISCHARGE: 10/23/2020 PRINCIPAL DIAGNOSES: Alcoholic cirrhosis with portal hypertension and ascites. SECONDARY DIAGNOSES: 1. Ulcerative colitis. 2. Improving depression. 3. Improving severe protein calorie malnutrition. 4. Improving deconditioning. 5. Resolving folliculitis to his nose. 6. Paroxysmal atrial fibrillation. 7. Iron deficiency anemia. COMPLICATIONS: None. ADVERSE REACTIONS: None. PROCEDURES: Paracentesis p.r.n. CONSULTATIONS: Physical Therapy and Occupational therapy. HOSPITAL COURSE: The patient was admitted as a transfer from [facility] where he was admitted with respiratory failure, syncope and dark melenic stool. He was treated with IV antibiotics for E. coli bacteremia and was transitioned to oral Levaquin. He also required paracentesis and had a PleurX catheter placed. There was some discussion about him going on hospice, but mom and patient wanted to give a try on [facility]. The patient did poorly the first few days with poor p.o. intake and he required to be started on peripheral parenteral nutrition with Clinimix. I also started him on Remeron for both depression and an appetite stimulant. We also did paracenteses every 3 days of 2 liters. His nutritional status slowly improved. His mood also improved and he has started participating with therapy and has gotten better and better to the point that his intake is more than 50% and his Clinimix has been discontinued. He is also participating with therapy and improved enough to the point that he was deemed stable for discharge to home. They do recommend home health with home therapy and [facility] visit for management of his right chest wall wound as well as his PleurX catheter. There were plans on removing the PleurX catheter, but I spoke with Dr. Hernandez at [facility] and he states that it leaves a pretty big hole and if there is any ascites then that might leak and will impede the healing and so plan is to leave it in for a month and if he does not need any paracentesis, then his PCP will schedule the patient to get it removed by [facility] as outpatient. PHYSICAL EXAMINATION: VITAL SIGNS: On the day of discharge, the patient is afebrile, heart rate is 82, respirations 16, oxygen saturation 95% on room air, blood pressure 108/68. CARDIOVASCULAR: S1, S2 plus. RESPIRATORY: Normal vesicular breath sounds. ABDOMEN: Soft, nontender. Bowel sounds in all quadrants. EXTREMITIES: Without cyanosis, clubbing. Peripheral pulses are palpable. ABDOMEN: PleurX catheter site is healthy. CENTRAL NERVOUS SYSTEM: Improving deconditioning. DISCHARGE MEDICATIONS: 1. Aldactone 100 mg daily. 2. [place] catheter 1 mg daily. 3. Lasix 40 mg daily. 4. Remeron 30 mg daily. 5. Nadolol 40 mg at bedtime. 6. Pantoprazole 40 mg b.i.d. FOLLOWUP: The patient is to follow up with his PCP in 7 to 10 days. Please consider this note as a [id number] documentation for home health. The patient is considered homebound. He has been advised not to drive until he follows up with his PCP. He does require continued PT/OT per our therapy recommendations. He also needs [facility] visits to monitor his abdominal girth, his blood pressure and for wound care for his right chest wall. I will sign the initial orders. All further orders needs to go to his PCP. All his prescriptions that he requested has been sent to his preferred pharmacy in [place]. I think it is [facility]. For full details, please see chart. Home health actually is being arranged and mom had initially chosen [facility], but apparently there is some confusion, because [facility] stated that the family has chosen someone else. I have asked nursing to check with the patient's mom and then with Case Management. Total time spent on this discharge 35 minutes. Job ID: [id number]
== END 2020-10-23 14:59 | disposition home health service (06) | DRG 432 ==
LOC: NAV ACUTE 17:20
PROVIDERS: ADMIT Internal Medicine; ATTEND Internal Medicine
DX: K70.31 Alcoholic cirrhosis of liver with ascites (principal); E43 Unspecified severe protein-calorie malnutrition; K76.6 Portal hypertension; E87.1 Hypo-osmolality and hyponatremia; D62 Acute posthemorrhagic anemia; K51.90 Ulcerative colitis, unspecified, without complications; E16.2 Hypoglycemia, unspecified; I48.0 Paroxysmal atrial fibrillation; R53.81 Other malaise; R63.8 Other symptoms and signs concerning food and fluid intake; F41.9 Anxiety disorder, unspecified; F32.9 Major depressive disorder, single episode, unspecified; M62.50 Muscle wasting and atrophy, not elsewhere classified, unspecified site; R36.9 Urethral discharge, unspecified; J34.0 Abscess, furuncle and carbuncle of nose; D50.9 Iron deficiency anemia, unspecified; L73.9 Follicular disorder, unspecified; H00.011 Hordeolum externum right upper eyelid; S49.92XA Unspecified injury of left shoulder and upper arm, initial encounter; X58.XXXA Exposure to other specified factors, initial encounter; D63.8 Anemia in other chronic diseases classified elsewhere; Z68.21 Body mass index [BMI] 21.0-21.9, adult
CPT/HCPCS: 36415; 36416; 80048; 80053; 81003; 81015; 82140; 85025; 85610; 87070; 87086; 87205; 94640; 97602; J2405; J7042; J7626